=== PATIENT | male | born 1985 | race African-American/Black ===

== ENCOUNTER 2017-10-29 21:48 | Emergency (ER) | payer OTHER ==
[~2017-10-29] VITALS: Ht 198.1 cm; Wt 188.1 kg
[2017-10-29 21:58] VITALS: TEMP 37; O2SAT 96; Ht 198.1 cm; Wt 188.1 kg
[2017-10-29] MEDS ORDERED: DIPH25CA5 PO (22:20)
[2017-10-29] MEDS ORDERED: MIRT15TA2 PO (22:20)
[2017-10-29] MEDS ORDERED: MIRT15TA PO (22:20)
[2017-10-29] MEDS ORDERED: PALI156I INJ (22:20)
[2017-10-29] MEDS ORDERED: ACETAMINOPHEN 325 MG TAB PO STA (22:20)
[2017-10-29] MEDS ORDERED: ABL/5 PO (22:20)
[2017-10-29] MEDS ORDERED: KETOROLAC TROMETHAMINE 30 MG/ML VIAL IV STA (22:20)
[2017-10-29] MEDS ORDERED: TRAZ1TAB52 PO (22:20)
--- NOTE | 2017-10-29 22:32 | EMERGENCY ROOM VISIT NOTE ---
History Report prepared by Michael: Tiara Chatterjee Under the Supervision of: Dr. Sacha Barton M.D. First contact with patient: 22:03 Chief Complaint: CARDIAC ASSESSMENT Stated Complaint: DIZZY/CHEST PAIN Nursing Triage Summary: pt arrives via ALS from [facility] for chest pain for several days EMS reports patient was out on the yard, he had a syncopal episode @ noon he was nauseous and vomited, he was reporting left chest pain that did not radiate, it did not cause him to be short of breath in the ambulance he was given 2 Nitro and 324 Aspirin for pain of 10 He arrives to the room reporting chest pain 08/16 History of Present Illness The patient is a 32 year old black male with a past medical history of heart murmur, depression, and bipolar disorder who presents to the ED with a cc of an episode of syncope beginning 10 hours ago. He reports he was walking back to his cell when he felt lightheaded and passed out. The patient notes he has been experiencing intermittent left-sided stabbing chest pain for a few days, that were improved by Nitroglycerin that he received 1 hour and 15 minutes ago. He also received a full dose of aspirin. He denies any cough, infectious symptoms, or leg swelling. The patient denies recent heavy lifting or strenuous activity. He denies a history of seizures, syncopal episodes, or blood clots. Source of History: patient Onset: 10 hours ago Position: head Quality: other (syncope) Timing: other (episode) Associated Symptoms: + chest pain (intermittent, L-sided, stabbing, relieved by Nitroglycerin), No cough Note: Denies: infectious symptoms Review of Systems See HPI for pertinent positives and negatives. A total of ten systems were reviewed and were otherwise negative. Past Medical & Surgical Medical Problems: (1) Bipolar disorder (2) Depression (3) Heart murmur Family History No pertinent family history stated. Social History Smoking Status: Current Every Day Smoker Housing Status: other Occupation Status: other (prisoner) Current/Historical Medications Scheduled Aripiprazole (Abilify), 5 MG PO DAILY Diphenhydramine Hcl (Benadryl), 75 MG PO HS Mirtazapine (Remeron), 15 MG PO HS Mirtazapine Soltab (Remeron Soltab), 15 MG PO HS Paliperidone Palmitate (Invega Sustenna), 156 MG INJ [id number] Trazodone Hcl (Desyrel), 3 TABS PO HS Physical Exam Vital Signs Date Time Temp Pulse Resp B/P (MAP) Pulse Ox O2 Delivery O2 Flow Rate FiO2 10/30/17 00:16 77 95 10/29/17 23:39 79 16 119/68 97 Room Air 10/29/17 22:00 91 10/29/17 21:58 37.0 88 18 136/72 95 Room Air 10/29/17 21:58 96 Room Air Physical Exam GENERAL: Awake, alert, well-appearing, NAD, obese HENT: Normocephalic, atraumatic. EYES: Normal conjunctiva. Sclera non-icteric. PERRL. No anisocoria. NECK: Supple. No nuchal rigidity. FROM. RESPIRATORY: CTAB, no rhonchi, wheezing, crackles CARDIAC: RRR, no MRG ABDOMEN: Soft, NTND, BS+ MSK: No chest wall TTP, no reproducible chest wall pain, no LE edema, no calf pain, negative Oracio's NEURO: GCS 15, CN 2-12 intact, moves all 4s on command SKIN: No rash or jaundice noted. Medical Decision & Procedures ER Provider Diagnostic Interpretation: Radiology results as stated below per my review and radiologist interpretation: CHEST ONE VIEW PORTABLE CLINICAL HISTORY: Atypical chest pain COMPARISON STUDY: No previous studies for comparison. FINDINGS: The heart is borderline enlarged. There is no failure. There is no focal pulmonary consolidation. There are no pleural effusions. There is no pneumothorax. IMPRESSION: No active disease in the chest. Electronically signed by: Nnamdi Chaparro M.D. 10/29/2017 10:36 PM Dictated Date/Time: 10/29/2017 10:36 PM Laboratory Results 10/29/17 22:40 Red Blood Count 4.35, Mean Corpuscular Volume 93.3, Mean Corpuscular Hemoglobin 31.7, Mean Corpuscular Hemoglobin Concent 34.0, Mean Platelet Volume 9.4, Neutrophils (%) (Auto) 58.4, Lymphocytes (%) (Auto) 28.8, Monocytes (%) (Auto) 7.6, Eosinophils (%) (Auto) 4.8, Basophils (%) (Auto) 0.1, Neutrophils # (Auto) 4.00, Lymphocytes # (Auto) 1.97, Monocytes # (Auto) 0.52, Eosinophils # (Auto) 0.33, Basophils # (Auto) 0.01 10/29/17 22:40 Test 10/29/17 22:40 White Blood Count 6.85 K/uL (4.8-10.8) Red Blood Count 4.35 M/uL (4.7-6.1) Hemoglobin 13.8 g/dL (14.0-18.0) Hematocrit 40.6 % (42-52) Mean Corpuscular Volume 93.3 fL (80-100) Mean Corpuscular Hemoglobin 31.7 pg (25-34) Mean Corpuscular Hemoglobin Concent 34.0 g/dl (32-36) Platelet Count 231 K/uL (130-400) Mean Platelet Volume 9.4 fL (7.4-10.4) Neutrophils (%) (Auto) 58.4 % Lymphocytes (%) (Auto) 28.8 % Monocytes (%) (Auto) 7.6 % Eosinophils (%) (Auto) 4.8 % Basophils (%) (Auto) 0.1 % Neutrophils # (Auto) 4.00 K/uL (1.4-6.5) Lymphocytes # (Auto) 1.97 K/uL (1.2-3.4) Monocytes # (Auto) 0.52 K/uL (0.11-0.59) Eosinophils # (Auto) 0.33 K/uL (0-0.5) Basophils # (Auto) 0.01 K/uL (0-0.2) RDW Standard Deviation 50.5 fL (36.4-46.3) RDW Coefficient of Variation 14.7 % (11.5-14.5) Immature Granulocyte % (Auto) 0.3 % Immature Granulocyte # (Auto) 0.02 K/uL (0.00-0.02) Prothrombin Time 11.1 SECONDS (9.0-12.0) Prothromb Time International Ratio 1.1 (0.9-1.1) Activated Partial Thromboplast Time 28.0 SECONDS (21.0-31.0) Partial Thromboplastin Ratio 1.1 Anion Gap 6.0 mmol/L (3-11) Est Creatinine Clear Calc Drug Dose 156.1 ml/min Estimated GFR () 87.7 Estimated GFR (Non- 75.7 BUN/Creatinine Ratio 4.6 (10-20) Calcium Level 8.5 mg/dl (8.5-10.1) Total Bilirubin 0.2 mg/dl (0.2-1) Direct Bilirubin < 0.1 mg/dl (0-0.2) Aspartate Amino Transf (AST/SGOT) 32 U/L (15-37) Alanine Aminotransferase (ALT/SGPT) 48 U/L (12-78) Alkaline Phosphatase 52 U/L (45-117) Troponin I < 0.015 ng/ml (0-0.045) Pro-B-Type Natriuretic Peptide 71 pg/ml (0-450) Total Protein 7.7 gm/dl (6.4-8.2) Albumin 3.5 gm/dl (3.4-5.0) Lipase 139 U/L (73-393) Laboratory results reviewed by me Medications Administered Medications (Trade) Dose Ordered Sig/Ty Route Start Time Stop Time Status Last Admin Dose Admin Ketorolac Tromethamine (Toradol Inj) 30 mg NOW STAT IV 10/29/17 22:20 10/29/17 22:21 DC 10/29/17 22:20 30 MG Acetaminophen (Tylenol Tab) 650 mg NOW STAT PO 10/29/17 22:20 10/29/17 22:21 DC 10/29/17 22:20 650 MG ECG Per My Interpretation Indication: chest pain Rate (beats per minute): 90 Rhythm: normal sinus Findings: left axis deviation, other (normal intervals) ED Course 9: The patient was evaluated in room B6. A complete history and physical exam was performed. 2335: I reevaluated and updated the patient. Medical Decision Nursing notes reviewed. Ancillary studies and prior records reviewed. The patient is a 32 year old black male with a past medical history of heart murmur, depression, and bipolar disorder who presents to the ED with a cc of an episode of syncope beginning 10 hours ago. Differential diagnosis: Etiologies such as cardiac ischemia, aortic dissection, pulmonary embolism, pneumonia, pneumothorax, musculoskeletal, infections, pericarditis, myocarditis , esophageal rupture, gastrointestinal, as well as others were entertained. Patient was seen and evaluated the bedside. The patient reportedly had an episode of syncope after changing positions. No tongue biting or evidence of any incontinence. The patient has a normal neurological exam. The patient is currently incarcerated at [facility]. Patient was complaining of some left- sided chest pain that was sharp in nature. Nonradiating. No exertional symptoms diaphoresis or nausea or the patient did receive both aspirin nitro in route. The patient states that he did ease up his symptoms. The patient did have blood work completed along with EKG troponin chest x-ray. Patient's chest x-ray is unremarkable. Patient's EKG does not show any acute ischemic changes. The machine does read prolonged QT however when measuring this out it does appear to be less than 2 full boxes. Given that the patient's syncope was positional I believe this is the more likely cause. The patient did not complain of any palpitations chest pains or shortness of breath to make me more concerned for possible arrhythmia. Patient's troponin is not elevated. HEART score of 3. Low risk MACE and less likely ACS. PERC negative. Less likely PE. No evidence of CHF. no SOB. Patient not hypotensive. Patient was given strict follow-up, discharge, and return precautions. All questions were answered. Patient was deemed suitable for outpatient follow-up at this time. Patient agreed with the plan of care and was safely discharged back to [facility]. Medication Reconcilliation Current Medication List: was personally reviewed by me Blood Pressure Screening Patient's blood pressure: Elevated blood pressure Blood pressure disposition: Referred to PCP Impression Primary Impression: Syncope Additional Impressions: Chest pain Encounter for smoking cessation counseling Scribe Attestation The scribe's documentation has been prepared under my direction and personally reviewed by me in its entirety. I confirm that the note above accurately reflects all work, treatment, procedures, and medical decision making performed by me. Departure Information Dispostion Other (d/c'ed to [facility]) Referrals No Doctor, Assigned (PCP) Patient Instructions Chest Pain - [facility], [facility] Additional Instructions Please return to the emergency department if you have worsening or recurrent symptoms not amenable to at-home treatment. Please call for a follow-up appointment with her primary care physician. Please take your medications as prescribed. If you have other concerns and/or complaints please feel free to also call your primary care physician's office or return the ED for further evaluation, management, and treatment. You may take 600 mg Ibuprofen every 6 hours as needed for pain/fever with food unless told by your physician not to take NSAIDs. You may take tylenol 650 mg every 6 hours as needed for pain/fever unless told by your physician to not take it or have liver problems. You may take motrin and tylenol separately or at the same time. Take your medications as prescribed. You have been examined and treated today on an emergency basis only. This is not a substitute for, or an effort to provide, complete comprehensive medical care. It is impossible to recognize and treat all injuries or illnesses in a single emergency department visit. It is therefore important that you follow up closely with [facility], your PCP, and/or your specialist(s). Call as soon as possible for an appointment. Thank you for your time and consideration. I look forward to speaking with you again soon. Please don't hesitate to call us if you have any questions. Problem Qualifiers Primary Impression: Syncope Syncope type: unspecified Qualified Codes: R55 - Syncope and collapse Additional Impressions: Chest pain Chest pain type: unspecified Qualified Codes: R07.9 - Chest pain, unspecified
--- NOTE | 2017-10-29 22:38 | DIAGNOSTIC IMAGING REPORT ---
CHEST ONE VIEW PORTABLE CLINICAL HISTORY: Atypical chest pain COMPARISON STUDY: No previous studies for comparison. FINDINGS: The heart is borderline enlarged. There is no failure. There is no focal pulmonary consolidation. There are no pleural effusions. There is no pneumothorax.[ IMPRESSION: No active disease in the chest. Electronically signed by: Nnamdi Chaparro M.D. 10/29/2017 10:36 PM Dictated Date/Time: 10/29/2017 10:36 PM
[2017-10-29 23:03] LABS: BASO % 0.1 %; BASO ABS # 0.01 K/uL (0-0.2); EOS % 4.8 %; EOS ABS # 0.33 K/uL (0-0.5); HEMATOCRIT 40.6 % (42-52); HEMOGLOBIN 13.8 g/dL (14.0-18.0); IG# 0.02 K/uL (0.00-0.02); LYMPH % 28.8 %; LYMPH ABS # 1.97 K/uL (1.2-3.4); MEAN CELL VOLUME 93.3 fL (80-100); MEAN CORPUSCULAR HEMOGLOBIN 31.7 pg (25-34); MEAN PLATELET VOLUME 9.4 fL (7.4-10.4); MONO % 7.6 %; MONO ABS # 0.52 K/uL (0.11-0.59); NEUT % 58.4 %; PLATELET COUNT 231 K/uL (130-400); RED CELL DISTRIBUTION WIDTH CV 14.7 % (11.5-14.5); RED CELL DISTRIBUTION WIDTH SD 50.5 fL (36.4-46.3); WHITE BLOOD COUNT 6.85 K/uL (4.8-10.8)
[2017-10-29 23:17] LABS: INR 1.1 (0.9-1.1)
[2017-10-29 23:33] LABS: ALBUMIN 3.5 gm/dl (3.4-5.0); ALKALINE PHOSPHATASE 52 U/L (45-117); ALT/SGPT 48 U/L (12-78); AST/SGOT 32 U/L (15-37); BLOOD UREA NITROGEN 6 mg/dl (7-18); CALCIUM 8.5 mg/dl (8.5-10.1); CARBON DIOXIDE 29 mmol/L (21-32); CREATININE 1.25 mg/dl (0.60-1.40); GLUCOSE 96 mg/dl (70-99); LIPASE 139 U/L (73-393); SODIUM 140 mmol/L (136-145); TOTAL PROTEIN 7.7 gm/dl (6.4-8.2)
[2017-10-29 23:39] VITALS: BP 119/68
[2017-10-30 00:16] VITALS: PULSE 77; O2SAT 95
== END 2017-10-30 00:17 ==
LOC: C.EDB 21:50
DX: R55 Syncope and collapse (principal); R07.9 Chest pain, unspecified; F31.9 Bipolar disorder, unspecified; F32.9 Major depressive disorder, single episode, unspecified; R01.1 Cardiac murmur, unspecified; F17.200 Nicotine dependence, unspecified, uncomplicated

== ENCOUNTER 2020-01-12 10:50 | Inpatient (IN) ==
[2020-01-12] MEDS ORDERED: SODIUM CHLORIDE 0.9% 1000ML 1,000 ML IV SCH (11:00)
--- NOTE | 2020-01-12 11:05 | Emergency Department Note ---
Impression & Plan Embolism, pulmonary with infarction, Rhabdomyolysis, Low back pain ED Provider Note NAME: KARLIE [id number] JOEL AGE: 34 SEX: M : 1985 ARRIVES VIA: Ambulance INFORMANT: Patient, ED PROVIDER(S): Rigoberto Méndez DO CHIEF COMPLAINT: Chest pain HPI: The patient is a 34-year-old male who presented to the emergency department for an evaluation of chest pain. The patient has been noticing chest pain over the course of the last few weeks. He also has noticed some left-sided sciatica. He describes left-sided back pain that goes down the left leg. He is noticed swelling of both legs as well as generalized weakness. He has been noticing chest pain which is worsened with exertion. He is also noticed very significant shortness of breath and dyspnea on exertion. The symptoms appear to be worsening over the course of the last few weeks. He was seen in our facility yesterday and had a complete work-up which included CT of the chest. Initially the CAT scan was read as negative and the patient was able to be discharged to home. He was also called to come back to the emergency department today because the CT of the chest was over read and apparently the patient may have a pulmonary embolism. Radiology recommends repeat CT the chest as well as Dopplers of lower extremities to further evaluate the patient's symptoms. The patient states his pain is moderate to severe at this time. He states it is worsened with deep breathing as well as exertion. He is never had a history of pulmonary venous thromboembolic disease in the past. The patient states otherwise he has been compliant with his outpatient medication regimen. ROS: See above HPI for pertinent positives & negatives. A total of 10 systems reviewed and were otherwise negative. PAST MEDICAL HISTORY: See Below PAST SURGICAL HISTORY: See Below FAMILY HISTORY: See Below SOCIAL HISTORY: See Below HOME MEDICATIONS: See Below ALLERGIES: See Below VITALS: See Below PHYSICAL EXAMINATION: GENERAL: Patient is awake alert in no acute distress patient is resting comfortably and showing no signs of anxiety EYES: The conjunctivae are clear. The pupils are round and reactive. EARS, NOSE, MOUTH AND THROAT: The nose is without any evidence of any deformity. Mucous membranes are moist. Tongue is midline. NECK: The neck is nontender and supple. RESPIRATORY: Normal respiratory effort is noted there is no evidence of wheezing rhonchi or rales CARDIOVASCULAR: Regular rate and rhythm was noted to auscultation. Systolic murmur was suggested. GASTROINTESTINAL: The abdomen is soft. Abdomen is nontender. MUSCULOSKELETAL/EXTREMITIES: There is no evidence of gross deformity full range of motion is noted in the hips and shoulders. SKIN: There is no obvious evidence of any rash. Trace pedal edema was noted bilaterally peer NEUROLOGIC: Patient is awake alert and oriented x3 strength is symmetric patellar reflexes are 2+ bilaterally MEDICAL DECISION MAKING: The patient is a 34-year-old male who presented to the emergency department for an evaluation of chest pain. The patient has been experiencing chest pain shortness of breath as well as low back pain with left-sided sciatica over the course the last few weeks. He was seen in our facility yesterday and had laboratory and radiographic studies obtained. At that time he was found to have a possible left-sided pulmonary embolism. This was initially not picked up on the read of the CAT scan. The over read of the CAT scan looks suspicious so the patient was asked to return today. The patient continues to have symptoms but he is not showing signs of hypotension. His EKG looks the same as previous. He does have an elevated CPK which was elevated yesterday as well. This was treated with IV fluids yesterday but continues to elevate today. The patient's Dopplers of his legs did not appear to be consistent with venous thromboembolic disease of the lower extremities. I was unsure if the patient will require anticoagulation at this time. I discussed his findings with the on-call [facility] hospitalist. They will evaluate the patient in the emergency department and determine further work-up as well as treatment. The patient was treated with IV fluids in the emergency department for the elevated CPK. He was reevaluated multiple times. I discussed the patient's laboratory and radiographic studies with him. Triage Nursing notes reviewed. Prior medical records reviewed Vital Signs: reviewed and remarkable for no significant abnormalities Differential diagnosis: Cardiac ischemia, aortic dissection, pulmonary embolism, pneumothorax, pneumonia, pericarditis, myocarditis, esophageal rupture, GERD, cholecystitis, pancreatitis, musculoskeletal, as well as other pathologies. ER treatment provided: See below Diagnostics interpreted by me: ECG: EKG was obtained in the emergency department. My interpretation is normal sinus rhythm at 88 bpm. There was no ectopy. There was no acute ST segment abnormalities noted. This was compared to a tracing from January 102019. No significant changes were noted. Cardiac Monitoring: An order was placed for continuous cardiac monitoring. The monitor shows a rate of 85 bpm with sinus rhythm. Laboratory studies: As stated above and show below. Imaging studies: See below Consultation(s): 1400: I discussed this case with Ananth who is on-call for the [facility] hospitalist. 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 Beliefs That Will Affect Care: None Current Living Situation: Other Current Living Situation Comment: [facility] Other Information That Helps Us Care for You: No Feels Safe at Home: Yes Safety Concerns: Feels Safe At This Time Allergies Allergies Allergy/AdvReac Type Severity Reaction Status Date / Time No Known Allergies Allergy Unverified 01/12/20 13:09 Home Meds Home Medications Medication Instructions Recorded Confirmed ammonium lactate 1 applic TOPICAL DAILY 01/12/20 01/12/20 aripiprazole [Abilify] 2 mg PO HS 01/12/20 01/12/20 diphenhydramine HCl [Benadryl] 50 mg PO HS 01/12/20 01/12/20 lanolin nuszqbx-rq-w.pet-ceres 1 applic TOPICAL BID 01/12/20 01/12/20 [Minerin Creme] paliperidone palmitate [Invega 156 mg IM UD 01/12/20 01/12/20 Sustenna] pantoprazole 20 mg PO DAILY 01/12/20 01/12/20 trazodone 200 mg PO HS 01/12/20 01/12/20 Results & Data (ED) Vital Signs Vital Signs - 24 hr 01/12/20 10:57 01/12/20 11:00 01/12/20 11:08 Temperature 36.9 C Temperature Source Oral Pulse Rate 93 H 89 Pulse Rate [Apical] Pulse Rate from SpO2 Sensor 91 H 89 Pulse Rhythm Regular Respiratory Rate 20 19 Respiratory Effort / Characteristics Spontaneous Respiratory Depth Normal Respiratory Pattern Regular Blood Pressure 132/69 131/84 Blood Pressure [Right Arm] Blood Pressure Mean 92 98 Blood Pressure Mean [Right Arm] Pulse Oximetry 98 98 98 Oxygen Delivery Method Nasal Cannula Nasal Cannula Oxygen Flow Rate 2 2 Sepsis Recent Fever Within 48 Hours No Sepsis New/Unexplained Change in Mental Status No Sepsis Action Taken by Nursing No Action Required 01/12/20 11:31 01/12/20 12:42 01/12/20 13:00 Temperature Temperature Source Pulse Rate 82 Pulse Rate [Apical] Pulse Rate from SpO2 Sensor 83 80 81 Pulse Rhythm Respiratory Rate 20 Respiratory Effort / Characteristics Respiratory Depth Respiratory Pattern Blood Pressure 103/47 L 143/79 H 136/56 L Blood Pressure [Right Arm] Blood Pressure Mean 74 93 93 Blood Pressure Mean [Right Arm] Pulse Oximetry 99 99 99 Oxygen Delivery Method Oxygen Flow Rate Sepsis Recent Fever Within 48 Hours Sepsis New/Unexplained Change in Mental Status Sepsis Action Taken by Nursing 01/12/20 13:06 01/12/20 13:30 01/12/20 14:00 Temperature Temperature Source Pulse Rate 78 96 H Pulse Rate [Apical] 79 Pulse Rate from SpO2 Sensor 79 86 Pulse Rhythm Respiratory Rate 18 16 14 Respiratory Effort / Characteristics Respiratory Depth Respiratory Pattern Blood Pressure 121/66 131/66 Blood Pressure [Right Arm] 136/56 L Blood Pressure Mean 90 93 Blood Pressure Mean [Right Arm] 82 Pulse Oximetry 99 98 96 Oxygen Delivery Method Oxygen Flow Rate Sepsis Recent Fever Within 48 Hours Sepsis New/Unexplained Change in Mental Status Sepsis Action Taken by Nursing 01/12/20 14:31 01/12/20 15:00 01/12/20 16:10 Temperature Temperature Source Pulse Rate 82 83 86 Pulse Rate [Apical] Pulse Rate from SpO2 Sensor 86 Pulse Rhythm Respiratory Rate 17 16 19 Respiratory Effort / Characteristics Respiratory Depth Respiratory Pattern Blood Pressure 117/54 L 104/64 136/80 Blood Pressure [Right Arm] Blood Pressure Mean 100 75 91 Blood Pressure Mean [Right Arm] Pulse Oximetry 98 99 Oxygen Delivery Method Oxygen Flow Rate Sepsis Recent Fever Within 48 Hours Sepsis New/Unexplained Change in Mental Status Sepsis Action Taken by Half-Way Medications Current Medication List: was personally reviewed by me Laboratory Data Attestation: I reviewed the patient's lab results. Result diagrams: 01/12/20 11:14 01/12/20 11:14 Lab Results 01/12/20 01/12/20 01/12/20 Range/Units 11:14 11:14 11:14 WBC 6.44 (4.8-10.8) K/uL RBC 4.24 L (4.7-6.1) M/uL Hgb 13.0 L (14.0-18.0) g/dL Hct 39.0 L (42-52) % MCV 92.0 (80-100) fL MCH 30.7 (25-34) pg MCHC 33.3 (32-36) g/dL RDW Std Deviation 50.8 H (36.4-46.3) fL RDW Coeff of Josefina 14.9 H (11.5-14.5) % Plt Count 257 (130-400) K/uL MPV 9.2 (7.4-10.4) fL Immature Gran % (Auto) 0.2 % Neut % (Auto) 57.5 % Lymph % (Auto) 32.3 % Pickett % (Auto) 7.5 % Eos % (Auto) 2.3 % Baso % (Auto) 0.2 % Neut # (Auto) 3.71 (1.4-6.5) K/uL Lymph # (Auto) 2.08 (1.2-3.4) K/uL Pickett # (Auto) 0.48 (0.11-0.59) K/uL Eos # (Auto) 0.15 (0-0.5) K/uL Baso # (Auto) 0.01 (0-0.2) K/uL Immature Gran # (Auto) 0.01 (0.00-0.02) K/uL PT 11.6 (9.0-12.0) Seconds INR 1.1 (0.9-1.1) APTT 28.8 (21.0-31.0) Seconds PTT Ratio 1.0 Sodium 142 (136-145) mmol/L Potassium 4.2 (3.5-5.1) mmol/L Chloride 110 H (98-107) mmol/L Carbon Dioxide 29 (21-32) mmol/L Anion Gap 3.0 (3-11) BUN 7 (7-18) mg/dl Creatinine 1.11 (0.6-1.4) mg/dl Est Cr Clr Drug Dosing 179.8 ml/min Est GFR ( Amer) 99.9 Est GFR (Non-Af Amer) 86.2 BUN/Creatinine Ratio 6.5 L (10-20) Glucose 94 (70-99) mg/dl Calcium 8.5 (8.5-10.1) mg/dl Total Bilirubin 0.3 (0.2-1) mg/dl AST 31 (15-37) U/L ALT 40 (12-78) U/L Alkaline Phosphatase 41 L (45-117) U/L Total Creatine Kinase 3227 H (39-308) U/L CK-MB (CK-2) 8.5 H (0.5-3.6) ng/ml CK/CKMB % Calc 0.3 (0-3.0) Troponin I < 0.015 (0-0.045) ng/ml Total Protein 7.4 (6.4-8.2) gm/dl Albumin 3.5 (3.4-5.0) gm/dl Globulin 3.9 (2.5-4.0) gm/dl Albumin/Globulin Ratio 0.9 (0.9-2) Lipase 124 (73-393) U/L Administered Medications Discontinued Medications Heparin Sodium (Porcine) (Heparin Sod (Porcine) 1000 Unit/Ml 10 Ml Vial) Confirm Administered Dose 10,000 units .ROUTE .STK-MED ONE Stop: 01/12/20 16:07 Last Admin: 01/12/20 16:12 Dose: 10,000 units Documented by: [id number] Cosigned by: [id number] Heparin Sodium/Dextrose (Heparin 93546 Unit/500 Ml D5w) Confirm Administered Dose 25,000 units IV .STK-MED ONE Stop: 01/12/20 16:06 Last Admin: 01/12/20 16:10 Dose: 2,450 units Documented by: [id number] Cosigned by: [id number] Sodium Chloride (Nss 1000ml) 1,000 mls @ 999 mls/hr IV .Q1H1M ALESSANDRA Stop: 01/12/20 12:00 Last Infusion: 01/12/20 12:29 Dose: 0 mls/hr Documented by: [id number] Admin: 01/12/20 11:24 Dose: 999 mls/hr Documented by: [id number] Sodium Chloride (Nss 1000ml) 1,000 mls @ 999 mls/hr IV .Q1H1M ONE Stop: 01/12/20 14:42 Last Infusion: 01/12/20 16:11 Dose: 49 mls/hr Documented by: [id number] Admin: 01/12/20 14:19 Dose: 999 mls/hr Documented by: [id number] Ioversol (Optiray 320 125ml) 119 ml IV ONCE ONE Stop: 01/12/20 12:37 Last Admin: 01/12/20 12:36 Dose: 119 ml Documented by: [id number] Imaging Data Radiologist's Impression: Patient: KARLIE [id number] Date: 01/12/20 MR#: [id number]: [place] Acct ID:[id number]: [address] Date: 1985[facility] Zip: [place] [address] Age: 34Location: ED Sex: MRoom/Bed: Att Phy:Diagnosis: PE Urmila Phy: [facility] CadenSer Date: 01/12/20 Fam Phy:Interpreting Phy: Matthew Amaral MD Admit Phy: Ordering Phy: Rigoberto Méndez DO cc: ~ LUMBAR SPINE CT CT DOSE: HISTORY: Back pain. TECHNIQUE: Multiaxial CT images of the lumbar spine were performed and refor matted in the sagittal and coronal plane without the use of contrast. A dose lowering technique was utilized adhering to the principles of ALARA. COMPARISON: None. FINDINGS: No fractures or subluxation within the lumbar spine. The visualized sacrum appears intact. Mild facet degenerative changes at L5-S1. Paravertebral soft tissues are unremarkable. No significant central canal narrowing by CT technique. Disc spaces are preserved. IMPRESSION: No fractures within the lumbar spine. ACT 112: Negative or not required by law. Electronically signed by: Matthew Amaral M.D. 01/12/2020 12:42 PM Dictated: 01/12/20 1239 Transcribed: 01/12/20 1239 Patient: KARLIE [id number] Date: 01/12/20 MR#: [id number]: [place] Acct ID:[id number]: [address] Date: 1985[facility] Zip: [place] [id number] Age: 34Location: ED Sex: MRoom/Bed: Att Phy:Diagnosis: PE Urmila Phy: [facility]o Date: 01/12/20 Fam Phy:Interpreting Phy: Oleg Del Rio MD Admit Phy: Ordering Phy: Rigoberto Méndez DO cc: ~ CT ANGIOGRAM OF THE CHEST CLINICAL HISTORY: Atypical chest pain. COMPARISON STUDY: Chest CT dated 01/11/2020. TECHNIQUE: Following the IV administration of 119 cc of Optiray 320, CT angiogram of the chest was performed from the upper abdomen to the thoracic inlet utilizing the pulmonary embolus protocol. Images are reviewed in the axial, sagittal, and coronal planes. 3-D MIPS images are created and assessed. IV contrast was administered without complication. A dose lowering technique was utilized adhering to the principles of ALARA. The examination is degraded by motion artifact. CT DOSE: 2395.97 mGy.cm FINDINGS: Thyroid: Imaged portions of the thyroid gland are normal in size and attenuation. Thoracic aorta: The thoracic aorta is normal in caliber and demonstrates standard 3-vessel arch anatomy. No dissection is seen. Pulmonary vasculature: The pulmonary trunk is normal in caliber. There is segmental and subsegmental pulmonary embolus within a branch of the left lower lobe pulmonary artery seen on image #122. No additional pulmonary emboli are identified. Heart: The heart is normal in size and without pericardial effusion. Lungs and pleural spaces: There is groundglass consolidation seen at the left lung base which is new from yesterday. The lungs are otherwise clear. No pleural effusion is seen. The trachea and central airways are clear. Mediastinum: There is no mediastinal lymphadenopathy. Corrina: Clear. Axillae: There is no axillary lymphadenopathy. Upper abdomen: The liver appears steatotic. Partially visualized upper abdominal viscera is otherwise within normal limits. Skeletal structures: No lytic or blastic bony lesions are seen. IMPRESSION: 1. There are segmental and subsegmental pulmonary emboli within a branch of the left lower lobe pulmonary artery. 2. There is groundglass consolidation identified in the left lower lobe which is new from yesterday. Given the presence of left lower lobe pulmonary embolus this likely represents a developing pulmonary infarct. Correlate clinically for andriy dence of a superimposed infectious/inflammatory pneumonitis. 3. Hepatic steatosis. 4. Additional findings as above. ACT 112: Negative or not required by law. Electronically signed by: Oleg Del Rio M.D. 01/12/2020 1:06 PM Dictated: 01/12/20 1256 Transcribed: 01/12/20 1256 Patient: KARLIE MALDONADO [id number] Date: 01/12/20 MR#: [id number]: EMANI HORTON Acct ID:[id number]: SAM Pfeiffer Date: 1985[facility] Zip: [place] [address] Age: 34Location: ED Sex: MRoom/Bed: Att Phy:Diagnosis: PE [facility]rmila [facility]: [facility] Fam Phy:Interpreting Phy: Jared Ragsdale MD Admit Phy: Ordering Phy: Rigoberto Méndez, cc: ~ BILATERAL LOWER EXTREMITY VENOUS DOPPLER CLINICAL HISTORY: Possible PE, recommended by radiology COMPARISON STUDY: No previous studies for comparison. TECHNIQUE: Sonography of the deep venous system of the bilateral lower extremities was performed. Compression and augmentation were evaluated. FINDINGS: The bilateral common femoral, superficial femoral and popliteal veins were compressible. Augmentation was normal. Flow was shown within the deep calf vessels. IMPRESSION: No evidence of deep venous thrombus within the bilateral lower extremities. ACT 112: Negative or not required by law. Electronically signed by: Jared Ragsdale M.D. 01/12/2020 12:17 PM Dictated: 01/12/20 1217 Transcribed: 01/12/207 Blood Pressure Blood Pressure Findings: Normal blood pressure Discharge Plan Visit Data Chief Complaint: Cardiac Assessment ED Provider: Rigoberto Méndez Discharge Problem: Embolism, pulmonary with infarction, Rhabdomyolysis, Low back pain Patient Disposition: Admitted As Inpatient Condition: Good Discharge Instructions Interventions: ED Discharge Assessment Last Done: 01/12/20 16:21 Forms Stand Alone Forms: [facility] Prescriptions Prescriptions: No Action ammonium lactate 12 % Lotion 1 applic TOPICAL DAILY RF: 0 pantoprazole 20 mg Tablet,Delayed Release (Dr/Ec) 20 mg PO DAILY RF: 0 trazodone 100 mg Tablet 200 mg PO HS RF: 0 diphenhydramine HCl [Benadryl] 25 mg Capsule 50 mg PO HS RF: 0 aripiprazole [Abilify] 2 mg Tablet 2 mg PO HS RF: 0 Minerin Creme Cream 1 applic TOPICAL BID RF: 0 Invega Sustenna 156 mg/mL Syringe 156 mg IM UD RF: 0 Referrals Referrals: Caden JOAQUIN [Primary Care Provider] -
[2020-01-12 11:24] LABS: Basophils # (auto) 0.01 K/uL (0-0.2); Basophils % (auto) 0.2 %; Eosinophils # (auto) 0.15 K/uL (0-0.5); Eosinophils % (auto) 2.3 %; Immature Granulocytes # (auto) 0.01 K/uL (0.00-0.02); Immature Granulocytes % (auto) 0.2 %; Lymphocytes # (auto) 2.08 K/uL (1.2-3.4); Lymphocytes % (auto) 32.3 %; Mean Corpuscular Hemoglobin 30.7 pg (25-34); Mean Corpuscular Hgb Conc 33.3 g/dL (32-36); Mean Platelet Volume 9.2 fL (7.4-10.4); Monocytes # (auto) 0.48 K/uL (0.11-0.59); Monocytes % (auto) 7.5 %; Neutrophils # (auto) 3.71 K/uL (1.4-6.5); Neutrophils % (auto) 57.5 %; Platelet Count 257 K/uL (130-400); RDW Coefficient of Variation 14.9 % (11.5-14.5); RDW Standard Deviation 50.8 fL (36.4-46.3); Red Blood Count 4.24 M/uL (4.7-6.1); White Blood Count 6.44 K/uL (4.8-10.8)
[2020-01-12 11:35] LABS: INR 1.1 (0.9-1.1); Partial Thromboplastin Time 28.8 Seconds (21.0-31.0); Prothrombin Time 11.6 Seconds (9.0-12.0)
[2020-01-12 11:42] LABS: Alanine Aminotransferase 40 U/L (12-78); Albumin Level 3.5 gm/dl (3.4-5.0); BUN Creatinine Ratio 6.5 (10-20); Blood Urea Nitrogen 7 mg/dl (7-18); Calcium 8.5 mg/dl (8.5-10.1); Carbon Dioxide 29 mmol/L (21-32); Chloride 110 mmol/L (98-107); Creatinine Clr Calc Pharmacy 179.8 ml/min; Est GFR (African American) 99.9; Est GFR (Non-African American) 86.2; Glucose 94 mg/dl (70-99); Potassium 4.2 mmol/L (3.5-5.1); Sodium 142 mmol/L (136-145)
[2020-01-12 11:56] LABS: Albumin Globulin Ratio 0.9 (0.9-2); Alkaline Phosphatase 41 U/L (45-117); Aspartate Aminotransferase 31 U/L (15-37); Bilirubin,Total 0.3 mg/dl (0.2-1); Creatine Kinase 3227 U/L (39-308); Creatine Kinase MB 8.5 ng/ml (0.5-3.6); Globulin 3.9 gm/dl (2.5-4.0); Lipase 124 U/L (73-393); Total Protein 7.4 gm/dl (6.4-8.2); Troponin I < 0.015 ng/ml (0-0.045)
--- NOTE | 2020-01-12 12:18 | Ultrasound Report ---
BILATERAL LOWER EXTREMITY VENOUS DOPPLER CLINICAL HISTORY: Possible PE, recommended by radiology COMPARISON STUDY: No previous studies for comparison. TECHNIQUE: Sonography of the deep venous system of the bilateral lower extremities was performed. Co mpression and augmentation were evaluated. FINDINGS: The bilateral common femoral, superficial femoral and popliteal veins were compressible. A ugmentation was normal. Flow was shown within the deep calf vessels. IMPRESSION: No evidence of deep venous thrombus within the bilateral lower extremities. ACT 112: Negative or not required by law. Electronically signed by: Jared Ragsdale M.D. 01/12/2020 12:17 PM
[2020-01-12] MEDS ORDERED: OPTIRAY 320 125ml IV ONE (12:36)
--- NOTE | 2020-01-12 12:44 | CT Scan Report ---
LUMBAR SPINE CT CT DOSE: HISTORY: Back pain. TECHNIQUE: Multiaxial CT images of the lumbar spine were performed and reformatted in the sagittal an d coronal plane without the use of contrast. A dose lowering technique was utilized adhering to the principles of ALARA. COMPARISON: None. FINDINGS: No fractures or subluxation within the lumbar spine. The visualized sacrum appears intact. Mild facet degenerative changes at L5-S1. Paravertebral soft tissues are unremarkable. No significant central canal narrowing by CT technique. Disc spaces are preserved. IMPRESSION: No fractures within the lumbar spine. ACT 112: Negative or not required by law. Electronically signed by: Matthew Amaral M.D. 01/12/2020 12:42 PM
--- NOTE | 2020-01-12 13:07 | CT Scan Report ---
CT ANGIOGRAM OF THE CHEST CLINICAL HISTORY: Atypical chest pain. COMPARISON STUDY: Chest CT dated 01/11/2020. TECHNIQUE: Following the IV administration of 119 cc of Optiray 320, CT angiogram of the chest was pe rformed from the upper abdomen to the thoracic inlet utilizing the pulmonary embolus protocol. Images are reviewed in the axial, sagittal, and coronal planes. 3-D MIPS images are created and assessed. I V contrast was administered without complication. A dose lowering technique was utilized adhering to the principles of ALARA. The examination is degraded by motion artifact. CT DOSE: 2395.97 mGy.cm FINDINGS: Thyroid: Imaged portions of the thyroid gland are normal in size and attenuation. Thoracic aorta: The thoracic aorta is normal in caliber and demonstrates standard 3-vessel arch anato my. No dissection is seen. Pulmonary vasculature: The pulmonary trunk is normal in caliber. There is segmental and subsegmental pulmonary embolus within a branch of the left lower lobe pulmonary artery seen on image #122. No pérez tional pulmonary emboli are identified. Heart: The heart is normal in size and without pericardial effusion. Lungs and pleural spaces: There is groundglass consolidation seen at the left lung base which is new from yesterday. The lungs are otherwise clear. No pleural effusion is seen. The trachea and central a irways are clear. Mediastinum: There is no mediastinal lymphadenopathy. Corrina: Clear. Axillae: There is no axillary lymphadenopathy. Upper abdomen: The liver appears steatotic. Partially visualized upper abdominal viscera is otherwise within normal limits. Skeletal structures: No lytic or blastic bony lesions are seen. IMPRESSION: 1. There are segmental and subsegmental pulmonary emboli within a branch of the left lower lobe pulmo nary artery. 2. There is groundglass consolidation identified in the left lower lobe which is new from yesterday. Given the presence of left lower lobe pulmonary embolus this likely represents a developing pulmonary infarct. Correlate clinically for evidence of a superimposed infectious/inflammatory pneumonitis. 3. Hepatic steatosis. 4. Additional findings as above. ACT 112: Negative or not required by law. Electronically signed by: Oleg Del Rio M.D. 01/12/2020 1:06 PM
[2020-01-12] MEDS ORDERED: SODIUM CHLORIDE 0.9% 1000ML 1,000 ML IV ONE (13:42)
--- NOTE | 2020-01-12 14:35 | History & Physical Report ---
Date of Service January 12, 2020 Assessment & Plan (1) Pulmonary embolism: CTA chest on 01/11 showed segmental and subsegmental pulmonary emboli within a branch of the left lower lobe pulmonary artery along with small pulmonary infarct. - Heparin gtt started - Hypercoagulable labs sent, though certainly his obesity is a risk factor. - Likely will need transition to warfarin given his obesity. - Given the small nature of the PE, vital sign stability, & negative troponin, I will defer echo. (2) Rhabdomyolysis: CK was noted to be 2750 on 01/10. He was given some fluids in the ED and sent back to [facility] for more fluids. Today his CK is up to 3230. No clear inciting cause. Per literature, pulmonary infarct can sometime cause it, but usually in the context of right-heart strain and positive troponins. - Check TSH - IV fluids - Monitor (3) Hematuria: Patient reports episode of darker urine yesterday. Unclear if this was hematuria or not. Could also have been a myoglobinuria from his mild CK elevation. - UA ordered - If positive, would need to consider urology consult given his need for anticoagulation (4) Bipolar disorder: Presently appears euthymic. - Continue home medications (5) Sciatica: Left-sided, down to the knee. CT lumbar spine without concerns. - Monitor History of Present Illness Primary Care Provider: [facility] 34yo M w/ hx of bipolar disorder and ALLISON who presents with segmental PE. The patient reported intermittent chest pain that radiated to the back for a few days. He was brought to the ED on 01/10 and worked up for a cardiac rule out and PE. The CTA at that time was very limited, but did not show any central PE. He was discharged back to [facility] and told to follow up with a tube mounter. His pain worsened, and he was sent back. This time, the CTA as repeated and a better study, and it showed segmental and subsegmental LLL PEs as well as a pulmonary infarct. On my interview, he reports the pain as waxing and waning and is not having any pain at present. He continues to have some shortness of breath, but feels better on 2L NC. No fevers, chills, cough. He does note he has some "flushing" that has gone on for several months. He reports some possible reddish urine yesterday, but no dysuria or polyuria. Allergies Allergy/AdvReac Type Severity Reaction Status Date / Time No Known Allergies Allergy Unverified 01/12/20 13:09 Home Medications Home Medications Medication Instructions Recorded Confirmed Type ammonium lactate 1 applic TOPICAL DAILY 01/12/20 01/12/20 History aripiprazole [Abilify] 2 mg PO HS 01/12/20 01/12/20 History diphenhydramine HCl [Benadryl] 50 mg PO HS 01/12/20 01/12/20 History lanolin ffzimhz-sy-d.pet-ceres 1 applic TOPICAL BID 01/12/20 01/12/20 History [Minerin Creme] paliperidone palmitate [Invega 156 mg IM UD 01/12/20 01/12/20 History Sustenna] pantoprazole 20 mg PO DAILY 01/12/20 01/12/20 History trazodone 200 mg PO HS 01/12/20 01/12/20 History Past Med/Surg History Medical History Bipolar disorder Chest pain Depression Heart murmur Hypertension Pulmonary embolism 01/12/2020 Rhabdomyolysis Social History Smoking Status: Unknown if ever smoked Second Hand Exposure: No; Do You Dip or Chew Tobacco: No; Tobacco Cessation Education Requested by Patient: No Hx Alcohol Use: No Hx Substance Use: No Preferred Language: Divehi Communication Ability: Effective 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 Beliefs That Will Affect Care: None Current Living Situation: Other Current Living Situation Comment: [facility] Other Information That Helps Us Care for You: No Feels Safe at Home: Yes Safety Concerns: Feels Safe At This Time Review of Systems Review of Systems: All systems reviewed & are unremarkable except as noted in HPI & below Physical Exam Constitutional: WD/WN, vitals as above + morbidly obese Eyes: EOM intact bilaterally; no conjunctival abnormality ENMT: external ear and nose normal, oropharynx normal Neck: trachea midline, no thyromegaly normal visual inspection Respiratory: normal respiratory effort, lungs clear to auscultation + labored breathing; no respiratory distress Auscultation: + diminished lung sounds Cardiovascular: RRR, no murmur, no edema Gastrointestinal (Abdomen): Inspection/Auscultation: abdomen normal to inspection; abdomen not distended Musculoskeletal: no cyanosis or clubbing, extremities motor strength 5/5 Skin: no rashes, warm and dry Neurologic: moves all extremities and awake Psychiatric: Orientation: alert, oriented to person and cooperative Results & Data Results & Data ([facility]) Vital Signs (Past 12 Hours) Vital Signs Temp Pulse Pulse Resp BP BP Pulse Ox 01/12/20 13:06 79 18 136/56 L 99 01/12/20 13:00 136/56 L 99 01/12/20 12:42 143/79 H 99 01/12/20 11:31 82 20 103/47 L 99 01/12/20 11:08 98 01/12/20 11:00 89 19 131/84 98 01/12/20 10:57 36.9 C 93 H 20 132/69 98 Code Status & VTE Plan VTE Prophylaxis Plan VTE Prophylaxis will be ordered: Yes PG Care Time/CCT Total # of Minutes Spent Total Time Spent with Patient: Total time spent is greater than 50% in coord ination of care (as documented) at patient's floor/unit and/or counseling patient: Coding Level of Care Code 19014 Initial Inpt Care Lvl 3 Diagnoses Pulmonary embolism I26.99 Rhabdomyolysis M62.82 Rhabdomyolysis type: non-traumatic Hematuria R31.9 Bipolar disorder F31.9 Sciatica M54.30 (1) Rhabdomyolysis Rhabdomyolysis type: non-traumatic Qualified Code(s): M62.82 - Rhabdomyolysis
[2020-01-12] MEDS ORDERED: HEPARIN 25000 UNIT/500 ML D5W IV ONE (16:05)
[2020-01-12] MEDS ORDERED: HEPARIN SOD (PORCINE) 1000 UNIT/ML 10 ML VIAL ONE (16:06)
--- NOTE | 2020-01-12 16:48 | Electrocardiogram Report ---
Test Reason : Blood Pressure : / mmHG Vent. Rate : 088 BPM Atrial Rate : 088 BPM P-R Int : 160 ms QRS Dur : 102 ms QT Int : 388 ms P-R-T Axes : 042 003 024 degrees QTc Int : 469 ms Normal sinus rhythm Abnormal ECG When compared with ECG of 11-JAN-2020 22:45, (unconfirmed) No significant change was found Confirmed by Dallas Gonzalez ([id number]) on 01/12/2020 4:47:57 PM Referred By: REFERRED SELF Confirmed By:Erasmo Gonzalez
[2020-01-12] MEDS ORDERED: ONDANSETRON INJ 2 MG/ML 2 ML VIAL IV PRN (17:17)
[2020-01-12] MEDS ORDERED: MoRPHine SULFATE 4 MG/ML 1 ML CARP\\VIAL IV PRN (17:17)
[2020-01-12] MEDS: SODIUM CHLORIDE 0.9% 1000ML 1,000 ML IV SCH (17:55)
[2020-01-12] MEDS: HEPARIN SODIUM/DEXTROSE 25,000 UNITS/500 ML BAG IV SCH (17:55)
[2020-01-12 20:04] LABS: Appearance Urine Clear (Clear); Bilirubin Urine Negative (Negative); Blood Urine Negative (Negative); Color Urine Yellow; Glucose Urine UA Negative (Negative); Ketones Urine Negative (Negative); Leukocyte Esterase Urine Negative (Negative); Nitrite Urine Negative (Negative); Protein Urine Negative (Negative); Specific Gravity Urine 1.038 (1.000-1.030); Urobilinogen Urine Negative (Negative)
[2020-01-12] MEDS: traZODone HCL 100 MG TAB PO SCH (21:36)
[2020-01-12] MEDS: ARIPIprazole 1 MG/ML ORAL SOLN 150 ML BTL PO SCH (21:36)
[2020-01-12] MEDS: diphenhydrAMINE Capsule 25 MG CAP PO SCH (21:36)
[2020-01-13 01:14] LABS: Partial Thromboplastin Ratio 1.8
[2020-01-13 01:21] LABS: Partial Thromboplastin Time 49.5 Seconds (21.0-31.0)
[2020-01-13] MEDS: HEPARIN SODIUM/DEXTROSE 25,000 UNITS/500 ML BAG IV SCH ×2 (03:32→15:27)
[2020-01-13] MEDS: SODIUM CHLORIDE 0.9% 1000ML 1,000 ML IV SCH ×3 (03:32→22:33)
[2020-01-13 07:41] LABS: Hematocrit (blood only) 37.8 % (42-52); Hemoglobin 12.5 g/dL (14.0-18.0); Mean Corpuscular Hemoglobin 30.5 pg (25-34); Mean Corpuscular Hgb Conc 33.1 g/dL (32-36); Mean Corpuscular Volume 92.2 fL (80-100); Mean Platelet Volume 9.4 fL (7.4-10.4); Platelet Count 247 K/uL (130-400); RDW Standard Deviation 50.8 fL (36.4-46.3); White Blood Count 5.87 K/uL (4.8-10.8)
[2020-01-13 08:02] LABS: INR 1.1 (0.9-1.1); Partial Thromboplastin Ratio 1.8; Prothrombin Time 11.9 Seconds (9.0-12.0)
[2020-01-13 08:03] LABS: Partial Thromboplastin Time 51.3 Seconds (21.0-31.0)
[2020-01-13 08:15] LABS: Albumin Level 3.2 gm/dl (3.4-5.0); BUN Creatinine Ratio 6.1 (10-20); Calcium 8.3 mg/dl (8.5-10.1); Creatinine Clr Calc Pharmacy 176.1 ml/min; Est GFR (African American) 98.8; Est GFR (Non-African American) 85.2
[2020-01-13 08:31] LABS: Albumin Globulin Ratio 0.8 (0.9-2); Bilirubin,Total 0.2 mg/dl (0.2-1); Magnesium 2.2 mg/dl (1.8-2.4); Thyroid Stimulating Hormone 4.8 uIu/ml (0.300-4.500); Total Protein 7.2 gm/dl (6.4-8.2)
[2020-01-13 08:43] LABS: T4 Free Thyroxine 0.9 ng/dl (0.8-1.6)
--- NOTE | 2020-01-13 13:07 | Hospitalist Progress Note ---
Date of Service January 13, 2020 Assessment & Plan (1) Embolism, pulmonary with infarction: 34 yo M inmate with hx bipolar disorder admitted for segmental and sub- segmental PE. 1. Pulmonary embolism with pulmonary infarct - CTA: segmental and subsegmental PEs in LLL with developing pulmonary infarct - heparin drip for anticoagulation - BL LE dopplers negative for DVT - hypercoagulable panel of protein C,s, antithrombin, antiphopholipid, factor v leiden pending - Given weight, unable to use DOAC for futre anticoagulation. Transition to warfarin started with 7 mg warfarin x 2 days. Warfarin nomogram to follow; d/c heparin when INR between 2-3 for 2 days. - morphine 4 mg IV Q3H PRN Rhabdo - CK 3500 on admission - NS for rehydration - encourage PO fluid intake - repeat ck tomorrow Bipolar disorder - continue aripiprazole 2mg HS, trazodone 200 mg HS DVT ppx; on heparin drip FEN/GI: regular diet Code status: full code Dispo: Med/Surg (2) Rhabdomyolysis: (3) Low back pain: (4) Bipolar disorder: Admission and Anticipated Discharge Date Admission Date: January 12, 2020 Supervising Physician Co-Signing Physician Notes I also saw the patient and confirmed rodriguez portions of the history and exam. He does not know of any family history of VTE. His chest pain is improved, although still present. SPO2 95 percent on RA. CV RRR, distant. Lungs clear. PE Rhabdomyolysis Hematuria Given his weight, there is no data with Lovenox, so will need heparin gtt until therapeutic on wafarin (with overlap). IVF Monitor CK, BMP, and CBC. Subjective otherwise healthy 34 yo M, complaints of chest pain for the past few days that got steadily worse. Says he also suffers from sciatic nerve pain but mostly ignores it. decides to bring up issue of pain when it spread to his chest. Denies recent hx of being sedentary, though he says that since covid they're in the cells 23:1 hour a day. denies fhmx of PE/DVT to his knowledge, has never had this issue before. denies trouble or pain with breathing. Review of Systems Constitutional: no fever, no chills and no body aches Respiratory: no cough, no dyspnea and no pain on inspiration Cardiovascular: + chest pain; no palpitations, no syncope and no edema Gastrointestinal: no abdominal pain, no nausea, no vomiting, no constipation and no diarrhea/loose stools Physical Exam Physical Exam: Constitutional: tall male in no apparent distress, laying comfortably in bed. Eyes: EOMI, pupils equal and reactive bilaterally, no scleral icterus Cardiac: RRR, no murmurs, gallops or rubs. Normal S1, S2 Pulm: CTA BL, no wheezes, rhonchi, crackles or rubs, moving air well throughout both lungs Abd: soft, nontender, nondistended, normal bowel sounds, no rebound or guarding Extremities: 2+ peripheral pulses, no edema Neuro: no focal deficits, moving all 4 limbs, A&Ox3 Results & Data Results & Data ([facility]) Vital Signs (Past 12 Hours) Vital Signs Temp Pulse Pulse Resp BP Pulse Ox 01/13/20 11:53 36.6 C 80 22 146/70 H 94 01/13/20 10:00 59 L 01/13/20 07:55 36.7 C 75 22 100/65 95 01/13/20 04:50 36.4 C L 71 18 121/80 97 01/13/20 03:10 65 18 98 Laboratory Results WBC 5.87 K/uL (4.8-10.8) 01/13/20 07:22 RBC 4.10 M/uL (4.7-6.1) L 01/13/20 07:22 Hgb 12.5 g/dL (14.0-18.0) L 01/13/20 07:22 Hct 37.8 % (42-52) L 01/13/20 07:22 MCV 92.2 fL (80-100) 01/13/20 07:22 MCH 30.5 pg (25-34) 01/13/20 07:22 MCHC 33.1 g/dL (32-36) 01/13/20 07:22 RDW Std Deviation 50.8 fL (36.4-46.3) H 01/13/20 07:22 RDW Coeff of Josefina 15.0 % (11.5-14.5) H 01/13/20 07:22 Plt Count 247 K/uL (130-400) 01/13/20 07:22 MPV 9.4 fL (7.4-10.4) 01/13/20 07:22 Immature Gran % (Auto) 0.2 % 01/12/20 11:14 Neut % (Auto) 57.5 % 01/12/20 11:14 Lymph % (Auto) 32.3 % 01/12/20 11:14 Kimble % (Auto) 7.5 % 01/12/20 11:14 Eos % (Auto) 2.3 % 01/12/20 11:14 Baso % (Auto) 0.2 % 01/12/20 11:14 Neut # (Auto) 3.71 K/uL (1.4-6.5) 01/12/20 11:14 Lymph # (Auto) 2.08 K/uL (1.2-3.4) 01/12/20 11:14 Kimble # (Auto) 0.48 K/uL (0.11-0.59) 01/12/20 11:14 Eos # (Auto) 0.15 K/uL (0-0.5) 01/12/20 11:14 Baso # (Auto) 0.01 K/uL (0-0.2) 01/12/20 11:14 Immature Gran # (Auto) 0.01 K/uL (0.00-0.02) 01/12/20 11:14 PT 11.9 Seconds (9.0-12.0) 01/13/20 07:22 INR 1.1 (0.9-1.1) 01/13/20 07:22 APTT 51.3 Seconds (21.0-31.0) H* 01/13/20 07:22 PTT Ratio 1.8 01/13/20 07:22 Sodium 143 mmol/L (136-145) 01/13/20 07:22 Potassium 4.0 mmol/L (3.5-5.1) 01/13/20 07:22 Chloride 110 mmol/L (98-107) H 01/13/20 07:22 Carbon Dioxide 27 mmol/L (21-32) 01/13/20 07:22 Anion Gap 6.0 (3-11) 01/13/20 07:22 BUN 7 mg/dl (7-18) 01/13/20 07:22 Creatinine 1.12 mg/dl (0.6-1.4) 01/13/20 07:22 Est Cr Clr Drug Dosing 176.1 ml/min 01/13/20 07:22 Est GFR ( Amer) 98.8 01/13/20 07:22 Est GFR (Non-Af Amer) 85.2 01/13/20 07:22 BUN/Creatinine Ratio 6.1 (10-20) L 01/13/20 07:22 Glucose 102 mg/dl (70-99) H 01/13/20 07:22 Calcium 8.3 mg/dl (8.5-10.1) L 01/13/20 07:22 Magnesium 2.2 mg/dl (1.8-2.4) 01/13/20 07:22 Total Bilirubin 0.2 mg/dl (0.2-1) 01/13/20 07:22 AST 31 U/L (15-37) 01/13/20 07:22 ALT 36 U/L (12-78) 01/13/20 07:22 Alkaline Phosphatase 41 U/L (45-117) L 01/13/20 07:22 Total Creatine Kinase 2563 U/L (39-308) H 01/13/20 07:22 CK-MB (CK-2) 8.5 ng/ml (0.5-3.6) H 01/12/20 11:14 CK/CKMB % Calc 0.3 (0-3.0) 01/12/20 11:14 Troponin I < 0.015 ng/ml (0-0.045) 01/12/20 11:14 Total Protein 7.2 gm/dl (6.4-8.2) 01/13/20 07:22 Albumin 3.2 gm/dl (3.4-5.0) L 01/13/20 07:22 Globulin 4.0 gm/dl (2.5-4.0) 01/13/20 07:22 Albumin/Globulin Ratio 0.8 (0.9-2) L 01/13/20 07: Lipase 124 U/L (73-393) 01/12/20 11:14 TSH 4.800 uIu/ml (0.300-4.500) H 01/13/20 07:22 Free T4 0.90 ng/dl (0.8-1.6) 01/13/20 07:22 Urine Color Yellow 01/12/20 19:45 Urine Appearance Clear (Clear) 01/12/20 19:45 Urine pH 6.0 (4.5-7.5) 01/12/20 19:45 Ur Specific Temple 1.038 (1.000-1.030) H 01/12/20 19:45 Urine Protein Negative (Negative) 01/12/20 19:45 Urine Glucose (UA) Negative (Negative) 01/12/20 19:45 Urine Ketones Negative (Negative) 01/12/20 19:45 Urine Blood Negative (Negative) 01/12/20 19:45 Urine Nitrite Negative (Negative) 01/12/20 19:45 Urine Bilirubin Negative (Negative) 01/12/20 19:45 Urine Urobilinogen Negative (Negative) 01/12/20 19:45 Ur Leukocyte Esterase Negative (Negative) 01/12/20 19:45 Resident Activity Tracking Resident Involvement: Resident Care Provided Care Provided: Adult Hospital Medicine (1) Rhabdomyolysis Rhabdomyolysis type: non-traumatic Qualified Code(s): M62.82 - Rhabdomyolysis (2) Low back pain Back pain laterality: unspecified Chronicity: acute Sciatica laterality: sciatica of left side Sciatica presence: with sciatica Qualified Code(s): M54.42 - Lumbago with sciatica, left side
[2020-01-13] MEDS ORDERED: STANDARD WARFARIN NOMOGRAM SCH (14:00)
[2020-01-13] MEDS: WARFARIN SOD 2 MG TAB PO SCH (15:27)
[2020-01-13] MEDS: WARFARIN SOD 5 MG TAB PO SCH (15:28)
[2020-01-13] MEDS: PANTOprazole 40 MG TAB PO SCH (15:28)
[2020-01-13] MEDS: traZODone HCL 100 MG TAB PO SCH (22:32)
[2020-01-13] MEDS: ARIPIprazole 1 MG/ML ORAL SOLN 150 ML BTL PO SCH (22:32)
[2020-01-13] MEDS: diphenhydrAMINE Capsule 25 MG CAP PO SCH (22:32)
[2020-01-14] MEDS: HEPARIN SODIUM/DEXTROSE 25,000 UNITS/500 ML BAG IV SCH ×3 (01:51→23:08)
[2020-01-14 07:33] LABS: Basophils # (auto) 0.01 K/uL (0-0.2); Basophils % (auto) 0.2 %; Eosinophils % (auto) 3.2 %; Hematocrit (blood only) 39.8 % (42-52); Immature Granulocytes # (auto) 0.01 K/uL (0.00-0.02); Immature Granulocytes % (auto) 0.2 %; Lymphocytes # (auto) 2.34 K/uL (1.2-3.4); Lymphocytes % (auto) 37.1 %; Mean Corpuscular Hemoglobin 30.5 pg (25-34); Mean Corpuscular Hgb Conc 32.7 g/dL (32-36); Mean Corpuscular Volume 93.4 fL (80-100); Mean Platelet Volume 9.4 fL (7.4-10.4); Monocytes # (auto) 0.43 K/uL (0.11-0.59); Monocytes % (auto) 6.8 %; Neutrophils # (auto) 3.31 K/uL (1.4-6.5); Neutrophils % (auto) 52.5 %; Platelet Count 294 K/uL (130-400); RDW Coefficient of Variation 15.1 % (11.5-14.5); RDW Standard Deviation 50.8 fL (36.4-46.3); Red Blood Count 4.26 M/uL (4.7-6.1)
[2020-01-14 08:06] LABS: INR 1.1 (0.9-1.1); Partial Thromboplastin Ratio 1.8; Prothrombin Time 11.8 Seconds (9.0-12.0)
[2020-01-14] MEDS: SODIUM CHLORIDE 0.9% 1000ML 1,000 ML IV SCH ×2 (08:34→16:19)
[2020-01-14 09:58] LABS: BUN Creatinine Ratio 6.7 (10-20); Calcium 8.8 mg/dl (8.5-10.1); Creatinine Clr Calc Pharmacy 169.9 ml/min; Est GFR (African American) 94.7; Est GFR (Non-African American) 81.7
--- NOTE | 2020-01-14 12:05 | Hospitalist Progress Note ---
Date of Service January 14, 2020 Assessment & Plan (1) Embolism, pulmonary with infarction: 34 yo M inmate with hx bipolar disorder admitted for segmental and sub- segmental PE. Pulmonary embolism with pulmonary infarct - CTA: segmental and subsegmental PEs in LLL with developing pulmonary infarct - heparin drip for anticoagulation - BL LE dopplers negative for DVT - hypercoagulable panel of protein C,s, antithrombin, antiphopholipid, factor v leiden pending - Given weight, unable to use DOAC for future anticoagulation. Transition to warfarin started with 7 mg warfarin x 2 days. Warfarin nomogram to follow; d/c heparin when INR between 2-3 for 2 days. - morphine 4 mg IV Q3H PRN Rhabdo, unclear etiology - CK 3500 on admission - NS for rehydration - encourage PO fluid intake - repeat ck this AM 1963, downtrending Bipolar disorder - continue aripiprazole 2mg HS, trazodone 200 mg HS DVT ppx; on heparin drip FEN/GI: regular diet Code status: full code Dispo: Med/Surg Admission and Anticipated Discharge Date Admission Date: January 12, 2020 Supervising Physician Co-Signing Physician Notes I saw the patient concurrent resident physician and confirmed rodriguez portions of the history and exam. Agree with impression and plan as noted in the resident documentation. He denies chest pain or shortness of breath. SPO2 94 percent on RA. Blood pressure 132/83, pulse 60. Respiratory rate 20. CV RRR, distant. Lungs clear. PE Rhabdomyolysis Hematuria Continue therapeutic heparin drip and warfarin Due to his weight, Lovenox and NOAC not feasible. Total creatinine kinase continues to improve; monitor. Subjective Tino Barkley was doing better today. He brought up that he was the second oldest child and that he did not have a family history of blood clots. He was concerned that his back pain was related to his blood clot, and after discussing it with him discussed that these were likely unrelated separate pathologies that were occurring at the same time. Review of Systems Review of Systems: Constitutional: denies fevers, chills Cardiac: denies chest pain, palpitations Pulm: denies cough, shortness of breath, sputum production Abd.: denies nausea, vomiting, abdominal pain, constipation, diarrhea Physical Exam Physical Exam: Constitutional: obese AA male in no apparent distress, laying comfortably in bed. Eyes: EOMI, pupils equal and reactive bilaterally, no scleral icterus Cardiac: RRR, no murmurs, gallops or rubs. Normal S1, S2 Pulm: CTA BL, no wheezes, rhonchi, crackles or rubs, moving air well throughout both lungs Abd: soft, nontender, nondistended, normal bowel sounds, no rebound or guarding Extremities: 2+ peripheral pulses, no edema Neuro: no focal deficits, moving all 4 limbs, A&Ox3 Results & Data Results & Data ([facility]) Vital Signs (Past 12 Hours) Vital Signs Temp Pulse Resp BP Pulse Ox 01/14/20 11:44 37.1 C 92 H 20 132/83 94 01/14/20 07:00 36.5 C 78 20 161/84 H 94 01/14/20 03:57 36.5 C 73 20 118/72 94 CBC Results Results Complete Blood Count Results: RBC 4.26 M/uL (4.7-6.1) L 01/14/20 WBC 6.30 K/uL (4.8-10.8) 01/14/20 Hgb 13.0 g/dL (14.0-18.0) L 01/14/20 Hct 39.8 % (42-52) L 01/14/20 Plt Count 294 K/uL (130-400) 01/14/20 Chemistry (BMP) Results BMP Results: Sodium 143 mmol/L (136-145) 01/14/20 Potassium 4.0 mmol/L (3.5-5.1) 01/14/20 Chloride 110 mmol/L (98-107) H 01/14/20 BUN 8 mg/dl (7-18) 01/14/20 Creatinine 1.16 mg/dl (0.6-1.4) 01/14/20 Glucose 98 mg/dl (70-99) 01/14/20 Resident Activity Tracking Resident Involvement: Resident Care Provided Care Provided: Adult Hospital Medicine
[2020-01-14] MEDS: PANTOprazole 40 MG TAB PO SCH (12:56)
[2020-01-14] MEDS: WARFARIN SOD 2 MG TAB PO SCH (16:18)
[2020-01-14] MEDS: WARFARIN SOD 5 MG TAB PO SCH (16:18)
[2020-01-14] MEDS: ARIPIprazole 1 MG/ML ORAL SOLN 150 ML BTL PO SCH (20:06)
[2020-01-14] MEDS: traZODone HCL 100 MG TAB PO SCH (20:07)
[2020-01-14] MEDS: diphenhydrAMINE Capsule 25 MG CAP PO SCH (20:07)
[2020-01-15] MEDS: SODIUM CHLORIDE 0.9% 1000ML 1,000 ML IV SCH ×3 (02:46→21:57)
[2020-01-15] MEDS: PANTOprazole 40 MG TAB PO SCH (07:55)
[2020-01-15 08:36] LABS: Basophils # (auto) 0.01 K/uL (0-0.2); Basophils % (auto) 0.2 %; Eosinophils # (auto) 0.24 K/uL (0-0.5); Eosinophils % (auto) 3.7 %; Hematocrit (blood only) 40.1 % (42-52); Hemoglobin 13.2 g/dL (14.0-18.0); Immature Granulocytes # (auto) 0.02 K/uL (0.00-0.02); Immature Granulocytes % (auto) 0.3 %; Lymphocytes # (auto) 2.29 K/uL (1.2-3.4); Lymphocytes % (auto) 34.9 %; Mean Corpuscular Hemoglobin 30.4 pg (25-34); Mean Corpuscular Hgb Conc 32.9 g/dL (32-36); Mean Corpuscular Volume 92.4 fL (80-100); Mean Platelet Volume 9.4 fL (7.4-10.4); Monocytes % (auto) 7.6 %; Neutrophils % (auto) 53.3 %; Platelet Count 272 K/uL (130-400); RDW Coefficient of Variation 15.1 % (11.5-14.5); RDW Standard Deviation 50.8 fL (36.4-46.3); Red Blood Count 4.34 M/uL (4.7-6.1); White Blood Count 6.56 K/uL (4.8-10.8)
[2020-01-15] MEDS: HEPARIN SODIUM/DEXTROSE 25,000 UNITS/500 ML BAG IV SCH ×2 (08:43→18:29)
[2020-01-15 09:15] LABS: INR 1.2 (0.9-1.1); Partial Thromboplastin Ratio 1.9; Prothrombin Time 12.4 Seconds (9.0-12.0)
[2020-01-15 09:36] LABS: Partial Thromboplastin Time 54.1 Seconds (21.0-31.0)
--- NOTE | 2020-01-15 12:48 | Electrocardiogram Report ---
Test Reason : Blood Pressure : / mmHG Vent. Rate : 089 BPM Atrial Rate : 089 BPM P-R Int : 158 ms QRS Dur : 090 ms QT Int : 390 ms P-R-T Axes : 044 003 025 degrees QTc Int : 474 ms Normal sinus rhythm Normal ECG When compared with ECG of 12-JAN-2020 10:55, Criteria for Septal infarct are no longer Present Confirmed by Fred Vasquez ([id number]) on 01/15/2020 12:48:31 PM Referred By: REFERRED SELF Confirmed By:Fred Vasquez
--- NOTE | 2020-01-15 14:48 | Hospitalist Progress Note ---
Date of Service January 15, 2020 Assessment & Plan (1) Embolism, pulmonary with infarction: 34 yo M inmate with hx bipolar disorder admitted for segmental and sub- segmental PE. Pulmonary embolism with pulmonary infarct - CTA: segmental and subsegmental PEs in LLL with developing pulmonary infarct - heparin drip for anticoagulation - BL LE dopplers negative for DVT - hypercoagulable panel of protein C,s, antithrombin, antiphopholipid, factor v leiden pending - Given weight, unable to use DOAC for future anticoagulation. Transition to warfarin started with 7 mg warfarin x 2 days and 10 mg for day 3. Warfarin nomogram to follow; d/c heparin when INR between 2-3 for 2 days. - morphine 4 mg IV Q3H PRN - ordered ECHO to evaluate for right heart strain and for baseline Rhabdo, unclear etiology could be related to PE - CK 3500 on admission - NS for rehydration - encourage PO fluid intake - repeat ck 1962, downtrending Bipolar disorder - continue aripiprazole 2mg HS, trazodone 200 mg HS DVT ppx; on heparin drip FEN/GI: regular diet Code status: full code Dispo: Med/Surg Admission and Anticipated Discharge Date Admission Date: January 12, 2020 Supervising Physician Co-Signing Physician Notes I saw the patient concurrent resident physician and confirmed rodriguez portions of the history and exam. Agree with impression and plan as noted in the resident documentation. Intermittent chest symptoms but no worse - better actually - than admission. SPO2 97 percent on RA. Blood pressure variable; a few elevated readings but many in 120s-130s. CV RRR, distant. Lungs clear. PE Rhabdomyolysis Hematuria Continue therapeutic heparin drip and warfarin. Due to his weight, Lovenox and NOAC not feasible. Total creatinine kinase continues to improve; monitor. Check echocardiogram. Subjective Filippo Jiménez is doing well this morning. He had no questions or concerns this morning. Review of Systems Review of Systems: Constitutional: denies fevers, chills Cardiac: denies chest pain, palpitations Pulm: denies cough, shortness of breath, sputum production Abd.: denies nausea, vomiting, abdominal pain, constipation, diarrhea Physical Exam Physical Exam: Constitutional: obese AA male in no apparent distress, laying comfortably in bed. Eyes: EOMI, pupils equal and reactive bilaterally, no scleral icterus Cardiac: RRR, no murmurs, gallops or rubs. Normal S1, S2 Pulm: CTA BL, no wheezes, rhonchi, crackles or rubs, moving air well throughout both lungs Abd: soft, nontender, nondistended, normal bowel sounds, no rebound or guarding Extremities: 2+ peripheral pulses, no edema Neuro: no focal deficits, moving all 4 limbs, A&Ox3 Results & Data Results & Data ([facility]) Vital Signs (Past 12 Hours) Vital Signs Temp Pulse Pulse Resp BP Pulse Ox 01/15/20 07:46 61 01/15/20 07:00 36.4 C L 66 20 169/69 H 97 01/15/20 03:01 36.4 C L 61 19 124/69 95
[2020-01-15] MEDS ORDERED: WARFARIN SOD 10 MG TAB PO ONE (16:00)
[2020-01-15] MEDS: ACETAMINOPHEN 325 MG TAB PO PRN (16:19)
[2020-01-15] MEDS: ARIPIprazole 1 MG/ML ORAL SOLN 150 ML BTL PO SCH (21:53)
[2020-01-15] MEDS: traZODone HCL 100 MG TAB PO SCH (21:53)
[2020-01-15] MEDS: diphenhydrAMINE Capsule 25 MG CAP PO SCH (21:54)
[2020-01-16] MEDS: HEPARIN SODIUM/DEXTROSE 25,000 UNITS/500 ML BAG IV SCH ×2 (03:54→16:04)
[2020-01-16 05:58] LABS: BUN Creatinine Ratio 7.6 (10-20); Calcium 8.4 mg/dl (8.5-10.1); Est GFR (African American) 95.7; Est GFR (Non-African American) 82.6; Potassium 3.8 mmol/L (3.5-5.1)
[2020-01-16 06:18] LABS: INR 1.4 (0.9-1.1); Partial Thromboplastin Ratio 3.6; Prothrombin Time 14.4 Seconds (9.0-12.0)
[2020-01-16 06:54] LABS: Partial Thromboplastin Time 101.3 Seconds (21.0-31.0)
[2020-01-16] MEDS: PANTOprazole 40 MG TAB PO SCH (07:56)
[2020-01-16] MEDS: SODIUM CHLORIDE 0.9% 1000ML 1,000 ML IV SCH ×2 (07:56→16:12)
--- NOTE | 2020-01-16 08:26 | Hospitalist Progress Note ---
Date of Service January 16, 2020 Assessment & Plan (1) Embolism, pulmonary with infarction: 34 yo M inmate with hx bipolar disorder admitted for segmental and sub- segmental PE. Pulmonary embolism with pulmonary infarct - CTA: segmental and subsegmental PEs in LLL with developing pulmonary infarct - heparin drip for anticoagulation while bridging to Warfarin - BL LE dopplers negative for DVT - hypercoagulable panel of protein C,s, antithrombin, antiphospholipid, factor v leiden pending - Given weight, unable to use DOAC for future anticoagulation. Transition to warfarin following nomogram. - Will DC heparin when INR between 2-3 for 2 days. - morphine 4 mg IV Q3H PRN - ordered ECHO to evaluate for right heart strain and for baseline -- Grossly normal LV seize with EF 55-60% Rhabdomyolysis - CK 3500 on admission, since downtrending - NS for rehydration - encourage PO fluid intake - ?Secondary to body habitus and lack of movement - Patient notes that while in nursing home they only have 1 hour where they are allowed out into the yard, the remainder of the time he spends sitting in his cell. Bipolar disorder - continue aripiprazole 2mg HS, trazodone 200 mg HS DVT ppx: on heparin drip, transitioning to Warfarin FEN/GI: regular diet Code status: full code Dispo: Med/Surg Admission and Anticipated Discharge Date Admission Date: January 12, 2020 Supervising Physician Co-Signing Physician Notes I personally examined the patient and verified all rodriguez points of history and exam, discussed case, and agree with decision making with Dr Ramirez. some chest pressure - positional. otherwise feeling about the same. in cell 23hrs a day - notes mostly ends up sitting around and watching TV then vitals noted nad heent nc at mmm lungs cta b/l no r/r/w good effort skin no rashes no pallor or icterus PE - due to mass can't safely transition to DOAC and doubt could get efficacy from lovenox. titrating up coumadin and currently on heparin gtt. strongly suspect current chest sx from PE/infarct - follow / supportive care mild rhabdo - mild, but only real inciting factors would be baseline body mass and sitting in cell for prolonged periods. seems asymptomatic. follow clinically, would also recommend following CPK periodically to r/o underlying muscle/neuromuscular disorder otherwise as above Subjective Patient examined at the bedside this AM. Noting that over all he was feeling well without concerns. He stated that he did have some slight discomfort with deep inhalation, but that it was relatively mild. No other concerns at this time. Review of Systems Constitutional: no fever, no chills and no weakness Eyes: no worsening vision Respiratory: + pain on inspiration (primarily with deep inspiration); no c ough, no dyspnea and no wheezing Cardiovascular: no chest pain, no dyspnea on exertion and no palpitations Gastrointestinal: no abdominal pain, no nausea, no vomiting, no constipation and no diarrhea/loose stools Physical Exam Constitutional: WD/WN, vitals as above Respiratory: normal respiratory effort, lungs clear to auscultation Cardiovascular: RRR, no murmur, no edema Gastrointestinal (Abdomen): normal bowel sounds, soft, nontender, no hepatosplenomegaly Results & Data Results & Data ([facility]) Vital Signs (Past 12 Hours) Vital Signs Temp Pulse Pulse Resp BP Pulse Ox 01/16/20 07:28 63 01/16/20 07:00 36.6 C 65 20 127/75 96 01/16/20 05:15 66 01/16/20 05:12 36.9 C 68 18 132/70 94 01/16/20 03:32 66 20 96 01/16/20 00:20 88 18 95 01/15/20 23:00 36.7 C 65 18 139/72 95 Resident Activity Tracking Resident Involvement: Resident Care Provided Care Provided: Adult [facility]
--- NOTE | 2020-01-16 12:25 | XCELERA ---
[id number]
[2020-01-16 14:43] LABS: Partial Thromboplastin Ratio 2.5
[2020-01-16 14:46] LABS: Partial Thromboplastin Time 68.4 Seconds (21.0-31.0)
[2020-01-16] MEDS ORDERED: WARFARIN SOD 10 MG TAB PO ONE (16:00)
[2020-01-16] MEDS: ACETAMINOPHEN 325 MG TAB PO PRN (16:04)
--- NOTE | 2020-01-16 18:19 | Billing Data ---
Date of Service January 16, 2020 Coding Level of Care Code 76447 Subseq Hosp Care Lvl 3
[2020-01-16] MEDS: ARIPIprazole 1 MG/ML ORAL SOLN 150 ML BTL PO SCH (20:33)
[2020-01-16] MEDS: traZODone HCL 100 MG TAB PO SCH (20:34)
[2020-01-16] MEDS: diphenhydrAMINE Capsule 25 MG CAP PO SCH (20:34)
[2020-01-16 21:48] LABS: Partial Thromboplastin Ratio 2.6
[2020-01-16 21:52] LABS: Partial Thromboplastin Time 71.2 Seconds (21.0-31.0)
[2020-01-17] MEDS: SODIUM CHLORIDE 0.9% 1000ML 1,000 ML IV SCH ×3 (02:07→23:40)
[2020-01-17] MEDS: HEPARIN SODIUM/DEXTROSE 25,000 UNITS/500 ML BAG IV SCH ×2 (04:43→18:34)
[2020-01-17 06:30] LABS: Basophils # (auto) 0.01 K/uL (0-0.2); Basophils % (auto) 0.2 %; Eosinophils # (auto) 0.24 K/uL (0-0.5); Eosinophils % (auto) 3.7 %; Hematocrit (blood only) 38.5 % (42-52); Hemoglobin 12.4 g/dL (14.0-18.0); Immature Granulocytes # (auto) 0.02 K/uL (0.00-0.02); Immature Granulocytes % (auto) 0.3 %; Lymphocytes # (auto) 2.19 K/uL (1.2-3.4); Lymphocytes % (auto) 33.9 %; Mean Corpuscular Hemoglobin 30.1 pg (25-34); Mean Corpuscular Hgb Conc 32.2 g/dL (32-36); Mean Corpuscular Volume 93.4 fL (80-100); Mean Platelet Volume 9.4 fL (7.4-10.4); Monocytes # (auto) 0.44 K/uL (0.11-0.59); Monocytes % (auto) 6.8 %; Neutrophils # (auto) 3.56 K/uL (1.4-6.5); Neutrophils % (auto) 55.1 %; Platelet Count 280 K/uL (130-400); RDW Coefficient of Variation 15.1 % (11.5-14.5); RDW Standard Deviation 51.4 fL (36.4-46.3); Red Blood Count 4.12 M/uL (4.7-6.1); White Blood Count 6.46 K/uL (4.8-10.8)
[2020-01-17 06:48] LABS: INR 1.9 (0.9-1.1); Partial Thromboplastin Ratio 2.1; Prothrombin Time 19.3 Seconds (9.0-12.0)
--- NOTE | 2020-01-17 06:49 | Hospitalist Progress Note ---
Date of Service January 17, 2020 Assessment & Plan (1) Embolism, pulmonary with infarction: 34 yo M inmate with hx bipolar disorder admitted for segmental and sub- segmental PE. Pulmonary embolism with pulmonary infarct - CTA: segmental and subsegmental PEs in LLL with developing pulmonary infarct - heparin drip for anticoagulation while bridging to Warfarin - BL LE dopplers negative for DVT - hypercoagulable panel of protein C,s, antithrombin, antiphospholipid, factor v leiden pending - Given weight, unable to use DOAC for future anticoagulation. Transition to warfarin following nomogram. - INR at 1.9 today, will receive 7.5mg today. - If INR >2 tomorrow and patient feeling well over all, likely plan for DC - Will DC heparin when INR between 2-3 for 2 days. - morphine 4 mg IV Q3H PRN - ordered ECHO to evaluate for right heart strain and for baseline -- Grossly normal LV seize with EF 55-60% - Given Toradol 30mg IV once today for chest discomfort. Rhabdomyolysis - CK 3500 on admission, since downtrending - NS for rehydration - encourage PO fluid intake - ?Secondary to body habitus and lack of movement - Patient notes that while in alf they only have 1 hour where they are allowed out into the yard, the remainder of the time he spends sitting in his cell. - Can recheck CK in future to ensure reduction of CK or if chronic for patient. Bipolar disorder - continue aripiprazole 2mg HS, trazodone 200 mg HS DVT ppx: on heparin drip, transitioning to Warfarin FEN/GI: regular diet Code status: full code Dispo: Med/Surg Admission and Anticipated Discharge Date Admission Date: January 12, 2020 Supervising Physician Co-Signing Physician Notes I personally examined the patient and verified all rodriguez points of history and exam, discussed case, and agree with decision making with Dr Ramirez. chest pressure ongoing still mostly positional. pain better w tylenol some but then comes back. asks insightful questions about PE/management/ongoing management. notes dad of PE not too long ago apparently. vitals noted nad heent nc at mmm lungs cta b/l no r/r/w good effort skin no rashes no pallor or icterus PE - due to mass can't safely transition to DOAC and doubt could get efficacy from lovenox. (discussed in the future if weight is lost could consider a transition to a DOAC then) titrating up coumadin and currently on heparin gtt. strongly suspect current chest sx from PE/infarct - follow / supportive care / add toradol. w unprovoked clot and fam hx - strongly suspsicious of baseline clotting disorder - would strongly consider indefinite anticoagulation (even without fam hx probably 5-10% risk recurrence at 1yr, and ~15-30% risk recurrence at 5yr --CHEST and [employer] 2016 guidelines would suggest extended anticoagulation) mild rhabdo - mild, but only real inciting factors would be baseline body mass and sitting in cell for prolonged periods. seems asymptomatic. follow clinically, would also recommend following CPK periodically to r/o underlying muscle/neuromuscular disorder otherwise as above Subjective Patient examined at he bedside. Noted he was feeling better today than the day prior. Noted improvement in his breathing, including deep breathing. Does note a bit of positional chest pain yesterday, but that it has also improved overnight. Is still noting occasional chest discomfort and that tylenol tends to wear off. Review of Systems Constitutional: no fever, no chills, no fatigue and no weakness Eyes: no worsening vision Ear, Nose, Mouth, Throat: no dizziness Respiratory: no cough, no dyspnea and no pain on inspiration Cardiovascular: + chest pain (positional); no radiating jaw, neck or arm pain, no dyspnea, no palpitations and no edema Gastrointestinal: no abdominal pain, no nausea, no vomiting, no constipation and no diarrhea/loose stools Genitourinary: no dysuria Physical Exam Constitutional: WD/WN, vitals as above Eyes: PERRL, conjunctivae normal, anicteric sclerae ENMT: external ear and nose normal, oropharynx normal Respiratory: normal respiratory effort, lungs clear to auscultation Cardiovascular: RRR, no murmur, no edema Gastrointestinal (Abdomen): normal bowel sounds, soft, nontender, no hepatosplenomegaly Psychiatric: A+Ox3, euthymic affect Results & Data Results & Data ([facility]) Vital Signs (Past 12 Hours) Vital Signs Temp Pulse Pulse Resp BP Pulse Ox 01/17/20 04:39 36.6 C 83 20 147/65 H 95 01/17/20 04:01 84 18 97 01/17/20 01:28 62 16 97 01/16/20 23:14 36.6 C 74 22 143/79 H 95 Resident Activity Tracking Resident Involvement: Resident Care Provided Care Provided: Adult Hospital Medicine
[2020-01-17 06:52] LABS: Partial Thromboplastin Time 58.7 Seconds (21.0-31.0)
[2020-01-17 07:31] LABS: BUN Creatinine Ratio 7.2 (10-20); Calcium 8.8 mg/dl (8.5-10.1); Creatinine Clr Calc Pharmacy 161.5 ml/min; Est GFR (African American) 89.1; Est GFR (Non-African American) 76.9; Potassium 3.8 mmol/L (3.5-5.1)
[2020-01-17] MEDS: PANTOprazole 40 MG TAB PO SCH (08:43)
[2020-01-17] MEDS ORDERED: KETOROLAC 30 MG/ML VIAL IV ONE (10:40)
[2020-01-17] MEDS ORDERED: WARFARIN SOD 10 MG TAB PO ONE (16:00)
[2020-01-17 16:06] LABS: Protein S Functional(Activity) 78 % (70-150)
--- NOTE | 2020-01-17 20:04 | Billing Data ---
Date of Service January 17, 2020 Coding Level of Care Code 57578 Subseq Hosp Care Lvl 3
[2020-01-17] MEDS: ARIPIprazole 1 MG/ML ORAL SOLN 150 ML BTL PO SCH (20:41)
[2020-01-17] MEDS: traZODone HCL 100 MG TAB PO SCH (20:41)
[2020-01-17] MEDS: diphenhydrAMINE Capsule 25 MG CAP PO SCH (20:41)
[2020-01-18 04:55] LABS: B2 Glycoprotein IgA <9 SAU (<=20); B2 Glycoprotein IgG <9 SGU (<=20); B2 Glycoprotein IgM <9 SMU (<=20); Phosphatidylserine IgG <10 U/mL (<10); Phosphatidylserine IgM <25 U/mL (<25)
--- NOTE | 2020-01-18 06:36 | Hospitalist Progress Note ---
Date of Service January 18, 2020 Assessment & Plan (1) Embolism, pulmonary with infarction: 34 yo M inmate with hx bipolar disorder admitted for segmental and sub- segmental PE. Pulmonary embolism with pulmonary infarct - CTA: segmental and subsegmental PEs in LLL with developing pulmonary infarct - heparin drip for anticoagulation while bridging to Warfarin - BL LE dopplers negative for DVT - hypercoagulable panel of protein C,s, antithrombin, antiphospholipid, factor v leiden pending - Given weight, unable to use DOAC for future anticoagulation. Transition to warfarin following nomogram. - INR at 1.9 today, will receive 7.5mg today. - If INR >2 tomorrow and patient feeling well over all, likely plan for DC - Will DC heparin when INR between 2-3 for 2 days. - morphine 4 mg IV Q3H PRN - ordered ECHO to evaluate for right heart strain and for baseline -- Grossly normal LV seize with EF 55-60% - Given Toradol 30mg IV once today for chest discomfort. Rhabdomyolysis - CK 3500 on admission, since downtrending - NS for rehydration - encourage PO fluid intake - ?Secondary to body habitus and lack of movement - Patient notes that while in correction they only have 1 hour where they are allowed out into the yard, the remainder of the time he spends sitting in his cell. - Can recheck CK in future to ensure reduction of CK or if chronic for patient. Bipolar disorder - continue aripiprazole 2mg HS, trazodone 200 mg HS DVT ppx: on heparin drip, transitioning to Warfarin FEN/GI: regular diet Code status: full code Dispo: Med/Surg Admission and Anticipated Discharge Date Admission Date: January 12, 2020 Results & Data Results & Data ([facility]) Vital Signs (Past 12 Hours) Vital Signs Temp Pulse Pulse Resp BP Pulse Ox 01/18/20 03:25 36.5 C 78 20 109/79 95 01/18/20 00:06 73 01/17/20 23:26 36.7 C 80 19 144/71 H 97 01/17/20 19:19 36.9 C 70 18 133/71 97
[2020-01-18 07:42] LABS: INR 2.1 (0.9-1.1); Partial Thromboplastin Ratio 2.2; Prothrombin Time 21.7 Seconds (9.0-12.0)
[2020-01-18 07:43] LABS: Partial Thromboplastin Time 61.2 Seconds (21.0-31.0)
[2020-01-18] MEDS: HEPARIN SODIUM/DEXTROSE 25,000 UNITS/500 ML BAG IV SCH ×2 (09:25→10:46)
[2020-01-18] MEDS: PANTOprazole 40 MG TAB PO SCH (09:25)
[2020-01-18] MEDS: ACETAMINOPHEN 325 MG TAB PO PRN ×2 (09:59→17:00)
[2020-01-18] MEDS: SODIUM CHLORIDE 0.9% 1000ML 1,000 ML IV SCH (10:01)
[2020-01-18] MEDS ORDERED: WARFARIN SOD 7.5 MG TAB PO SCH (16:00)
--- NOTE | 2020-01-18 16:30 | Discharge Summary ---
Date of Service January 18, 2020 Admission HPI Per Admitting Provider 34yo M w/ hx of bipolar disorder and ALLISON who presents with segmental PE. The patient reported intermittent chest pain that radiated to the back for a few days. He was brought to the ED on 01/10 and worked up for a cardiac rule out and PE. The CTA at that time was very limited, but did not show any central PE. He was discharged back to [facility] and told to follow up with a cardboard cutter. His pain worsened, and he was sent back. This time, the CTA as repeated and a better study, and it showed segmental and subsegmental LLL PEs as well as a pulmonary infarct. On my interview, he reports the pain as waxing and waning and is not having any pain at present. He continues to have some shortness of breath, but feels better on 2L NC. No fevers, chills, cough. He does note he has some "flushing" that has gone on for several months. He reports some possible reddish urine yesterday, but no dysuria or polyuria. Discharge Exam Constitutional WD/WN, vitals as above Eyes PERRL, conjunctivae normal, anicteric sclerae ENMT external ear and nose normal, oropharynx normal Respiratory normal respiratory effort, lungs clear to auscultation Cardiovascular RRR, no murmur, no edema Gastrointestinal (Abdomen) normal bowel sounds, soft, nontender, no hepatosplenomegaly Psychiatric A+Ox3, euthymic affect Discharge Data Allergies Allergy/AdvReac Type Severity Reaction Status Date / Time No Known Allergies Allergy Unverified 01/12/20 13:09 Consultations 01/12/20 13:56 ED Decision to Admit Stat Ordered Studies 01/12/20 10:58 US venous doppler LE BI Stat 01/12/20 10:59 CT angio chest PE protocol Stat 01/12/20 11:22 CT lumbar spine wo con Stat Hospital Course (1) Embolism, pulmonary with infarction: 34 yo M inmate with hx bipolar disorder admitted for segmental and sub- segmental PE. Pulmonary embolism with pulmonary infarct - CTA: segmental and subsegmental PEs in LLL with developing pulmonary infarct - heparin drip for anticoagulation while bridging to Warfarin - BL LE dopplers negative for DVT - hypercoagulable panel of protein C,s, antithrombin, antiphospholipid, factor v leiden pending - Given weight, unable to use DOAC for future anticoagulation. Transition to warfarin following nomogram. - INR at 1.9 today, will receive 7.5mg today. - If INR >2 tomorrow and patient feeling well over all, likely plan for DC - Will DC heparin when INR between 2-3 for 2 days. - morphine 4 mg IV Q3H PRN - ordered ECHO to evaluate for right heart strain and for baseline -- Grossly normal LV seize with EF 55-60% - Given Toradol 30mg IV once today for chest discomfort. Rhabdomyolysis - CK 3500 on admission, since downtrending - NS for rehydration - encourage PO fluid intake - ?Secondary to body habitus and lack of movement - Patient notes that while in intermediate they only have 1 hour where they are allowed out into the yard, the remainder of the time he spends sitting in his cell. - Can recheck CK in future to ensure reduction of CK or if chronic for patient. Bipolar disorder - continue aripiprazole 2mg HS, trazodone 200 mg HS DVT ppx: on heparin drip, transitioning to Warfarin FEN/GI: regular diet Code status: full code Dispo: Med/Surg Discharge Plan Discharge Items [facility]position[facility] Reason For Visit: pulmonary embolism and infarct Discharge Diagnosis: Pulmonary Embolism Condition on Discharge: Good Activity: Per Instructions section Non-emergency contact: Primary Care Provider Call non-emergency contact if: you have any medication questions, your symptoms worsen and your pain is not controlled Follow-up/Referrals: Caden JOAQUIN [Primary Care Provider] - Diet: Regular Addtl Attending Provider Instructions: 34 yo M inmate with hx bipolar disorder admitted for segmental and sub- segmental PE. Pulmonary embolism with pulmonary infarct - CTA: segmental and subsegmental PEs in LLL with developing pulmonary infarct - heparin drip for anticoagulation while bridging to Warfarin - BL LE dopplers negative for DVT - hypercoagulable panel of protein C,s, antithrombin, antiphospholipid, factor v leiden negative. - Given weight, unable to use DOAC for future anticoagulation. Transitioned to warfarin following nomogram. - INR 2.1 on day of discharge and heparin gtt discontinued. - morphine 4 mg IV Q3H PRN -- discontinued on discharge - ordered ECHO to evaluate for right heart strain and for baseline -- Grossly normal LV seize with EF 55-60% - Please continue to take the following: -Warfarin 7.5mg daily as initial starting. Will require titration based on INR goal 2-3. -Tylenol 1000mg up to three times a day for pain as needed -Naproxen 500mg up to twice a day for pain as needed -Please check patients INR in 2 days time on Thursday01/20/20. Rhabdomyolysis - CK 3500 on admission, since downtrending - Rehydrated with normal saline. - ?Secondary to body habitus and lack of movement - Patient notes that while in intermediate they only have 1 hour where they are allowed out into the yard, the remainder of the time he spends sitting in his cell. - Can recheck CK in 1 month to ensure reduction of CK or if chronic for patient. Bipolar disorder - continue aripiprazole 2mg HS, trazodone 200 mg HS Pending Studies at Discharge: No Stand-Alone Forms: My [facility] Skilled Items Patient informed of condition?: Yes Discharge Level of Care: Other Communicable Disease: No Discharge Prognosis: Stable Lines: None Urinary Catheter: No Medications and DC Order Prescriptions: New naproxen [Naprosyn] 500 mg tablet 500 mg PO BID PRN (Reason: pain) Qty: 1 RF: 0 acetaminophen [Tylenol Extra Strength] 500 mg tablet 1,000 mg PO TID PRN (Reason: pain) Qty: 1 RF: 0 warfarin 7.5 mg tablet 7.5 mg PO DAILY Qty: 1 RF: 0 Continued ammonium lactate 12 % Lotion 1 applic TOPICAL DAILY RF: 0 pantoprazole 20 mg Tablet,Delayed Release (Dr/Ec) 20 mg PO DAILY RF: 0 trazodone 100 mg Tablet 200 mg PO HS RF: 0 diphenhydramine HCl [Benadryl] 25 mg Capsule 50 mg PO HS RF: 0 aripiprazole [Abilify] 2 mg Tablet 2 mg PO HS RF: 0 Minerin Creme Cream 1 applic TOPICAL BID RF: 0 Invega Sustenna 156 mg/mL Syringe 156 mg IM UD RF: 0 Discharge Orders: Discharge Order (Routine); Ordered 01/18/20 Ordered By: Brando Ramirez Admission Data Admit Date/Time: 01/12/20 14:29 Attending Provider: Marin Blakely Admit Provider: Bakari Yang Primary Care Provider: [facility] Other Providers: Bakari Yang ; Kalie Blandon ; Yuri Perkins
--- NOTE | 2020-01-18 17:25 | Hospitalist Progress Note ---
Date of Service January 18, 2020 Assessment & Plan (1) Embolism, pulmonary with infarction: 34 yo M inmate with hx bipolar disorder admitted for segmental and sub- segmental PE. Pulmonary embolism with pulmonary infarct - CTA: segmental and subsegmental PEs in LLL with developing pulmonary infarct - heparin drip for anticoagulation while bridging to Warfarin - BL LE dopplers negative for DVT - hypercoagulable panel of protein C,s, antithrombin, antiphospholipid, factor v leiden negative - Given weight, unable to use DOAC for future anticoagulation. Transition to warfarin following nomogram. - INR at 2.1 today, will receive 7.5mg today. - Heparin gtt dc'd - morphine 4 mg IV Q3H PRN - ordered ECHO to evaluate for right heart strain and for baseline -- Grossly normal LV seize with EF 55-60% - Toradol improves pain, will transition to Naproxen and Tylenol at discharge. - Planned for discharge today, however, [facility] unable to take patient back due to staffing issues. Will discharge in AM tomorrow. Rhabdomyolysis - CK 3500 on admission, since downtrending - NS for rehydration - encourage PO fluid intake - ?Secondary to body habitus and lack of movement - Patient notes that while in longterm they only have 1 hour where they are allowed out into the yard, the remainder of the time he spends sitting in his cell. - Can recheck CK in future to ensure reduction of CK or if chronic for patient. Bipolar disorder - continue aripiprazole 2mg HS, trazodone 200 mg HS DVT ppx: DC hep gtt, Warfarin FEN/GI: regular diet Code status: full code Dispo: Med/Surg - plan for DC to [facility] tomorrow Admission and Anticipated Discharge Date Admission Date: January 12, 2020 Supervising Physician Co-Signing Physician Notes I personally examined the patient and verified all rodriguez points of history and exam, discussed case, and agree with decision making with Dr Ramirez. feels about the same. updated on plans. asks good questions. vitals noted nad heent nc at mmm lungs cta b/l no r/r/w good effort skin no rashes no pallor or icterus PE - due to mass can't safely transition to DOAC and doubt could get efficacy from lovenox. (discussed in the future if weight is lost could consider a transition to a DOAC then) INR now therapeutic - waiting for longterm to be able to accept him back. ongoing tylenol/nsaid for pain - anticipate ongoing improvement mild rhabdo - mild, but only real inciting factors would be baseline body mass and sitting in cell for prolonged periods. seems asymptomatic. follow clinically, would also recommend following CPK periodically to r/o underlying muscle/neuromuscular disorder otherwise as above Subjective Patient evaluated at the bedside this AM. Noted that his chest discomfort was improving, but still present when laying down flat. Analgesics improve pain. No other concerns at this time. Review of Systems Constitutional: no fever, no chills, no fatigue and no weakness Eyes: no worsening vision Ear, Nose, Mouth, Throat: no dizziness Respiratory: no cough, no dyspnea and no pain on inspiration Cardiovascular: + chest pain (positional); no radiating jaw, neck or arm pain, no dyspnea, no palpitations and no edema Gastrointestinal: no abdominal pain, no nausea, no vomiting, no constipation and no diarrhea/loose stools Genitourinary: no dysuria Physical Exam Constitutional: WD/WN, vitals as above Eyes: PERRL, conjunctivae normal, anicteric sclerae ENMT: external ear and nose normal, oropharynx normal Respiratory: normal respiratory effort, lungs clear to auscultation Cardiovascular: RRR, no murmur, no edema Gastrointestinal (Abdomen): normal bowel sounds, soft, nontender, no hepatosplenomegaly Psychiatric: A+Ox3, euthymic affect Results & Data Results & Data ([facility]) Vital Signs (Past 12 Hours) Vital Signs Temp Pulse Pulse Pulse Resp BP BP 01/18/20 17:21 36.7 C 91 H 78 22 119/70 118/67 01/18/20 16:00 79 01/18/20 12:05 36.7 C 78 22 119/70 01/18/20 08:09 36.7 C 69 20 128/78 01/18/20 08:00 81 Pulse Ox 01/18/20 17:21 95 01/18/20 16:00 01/18/20 12:05 95 01/18/20 08:09 98 01/18/20 08:00 Resident Activity Tracking Resident Involvement: Resident Care Provided Care Provided: [facility] Medicine
--- NOTE | 2020-01-18 19:13 | Billing Data ---
Date of Service January 18, 2020 Coding Level of Care Code 65405 Subseq Hosp Care Lvl 2
[2020-01-18] MEDS: ARIPIprazole 1 MG/ML ORAL SOLN 150 ML BTL PO SCH (21:34)
[2020-01-18] MEDS: traZODone HCL 100 MG TAB PO SCH (21:35)
[2020-01-18] MEDS: diphenhydrAMINE Capsule 25 MG CAP PO SCH (21:40)
[2020-01-18] MEDS ORDERED: POLYETHYLENE (MIRALAX) 17 GM PACK ONE (21:49)
[2020-01-18] MEDS ORDERED: POLYETHYLENE (MIRALAX) 17 GM PACK PO PRN (21:55)
--- NOTE | 2020-01-19 07:07 | Discharge Summary ---
Date of Service January 19, 2020 Admission HPI Per Admitting Provider 34yo M w/ hx of bipolar disorder and ALLISON who presents with segmental PE. The patient reported intermittent chest pain that radiated to the back for a few days. He was brought to the ED on 01/10 and worked up for a cardiac rule out and PE. The CTA at that time was very limited, but did not show any central PE. He was discharged back to [facility] and told to follow up with a talent acquisition consultant. His pain worsened, and he was sent back. This time, the CTA as repeated and a better study, and it showed segmental and subsegmental LLL PEs as well as a pulmonary infarct. On my interview, he reports the pain as waxing and waning and is not having any pain at present. He continues to have some shortness of breath, but feels better on 2L NC. No fevers, chills, cough. He does note he has some "flushing" that has gone on for several months. He reports some possible reddish urine yesterday, but no dysuria or polyuria. Admission Exam Per Admitting Provider Constitutional: WD/WN, vitals as above + morbidly obese Eyes: EOM intact bilaterally; no conjunctival abnormality ENMT: external ear and nose normal, oropharynx normal Neck: trachea midline, no thyromegaly normal visual inspection Respiratory: normal respiratory effort, lungs clear to auscultation + labored breathing; no respiratory distress Auscultation: + diminished lung sounds Cardiovascular: RRR, no murmur, no edema Gastrointestinal (Abdomen): Inspection/Auscultation: abdomen normal to inspection; abdomen not distended Musculoskeletal: no cyanosis or clubbing, extremities motor strength 5/5 Skin: no rashes, warm and dry Neurologic: moves all extremities and awake Psychiatric: Orientation: alert, oriented to person and cooperative Principal Diagnosis Pulmonary Embolus Discharge Exam Constitutional WD/WN, vitals as above Neck trachea midline, no thyromegaly Respiratory normal respiratory effort, lungs clear to auscultation Cardiovascular RRR, no murmur, no edema Gastrointestinal (Abdomen) normal bowel sounds, soft, nontender, no hepatosplenomegaly Discharge Data Allergies Allergy/AdvReac Type Severity Reaction Status Date / Time No Known Allergies Allergy Unverified 01/12/20 13:09 Consultations 01/12/20 13:56 ED Decision to Admit Stat Ordered Studies 01/12/20 10:58 US venous doppler LE BI Stat 01/12/20 10:59 CT angio chest PE protocol Stat 01/12/20 11:22 CT lumbar spine wo con Stat Hospital Course (1) Embolism, pulmonary with infarction: 34 yo M inmate with hx bipolar disorder admitted for segmental and sub- segmental PE. Pulmonary embolism with pulmonary infarct - CTA: segmental and subsegmental PEs in LLL with developing pulmonary infarct - heparin drip for anticoagulation while bridging to Warfarin - BL LE dopplers negative for DVT - hypercoagulable panel of protein C,s, antithrombin, antiphospholipid, factor v leiden negative. - Given weight, unable to use DOAC for future anticoagulation. Transitioned to warfarin following nomogram. - INR 2.4 on day of discharge and heparin gtt discontinued. - morphine 4 mg IV Q3H PRN -- discontinued on discharge - ordered ECHO to evaluate for right heart strain and for baseline -- Grossly normal LV seize with EF 55-60% - Please continue to take the following: -Warfarin 7.5mg daily as initial starting. Will require titration based on INR goal 2-3. -Tylenol 1000mg up to three times a day for pain as needed -Naproxen 500mg up to twice a day for pain as needed -Please check patients INR in 1 day on Thursday01/20/20. Rhabdomyolysis - CK 3500 on admission, since downtrending - Rehydrated with normal saline. - ?Secondary to body habitus and lack of movement - Patient notes that while in senior living they only have 1 hour where they are allowed out into the yard, the remainder of the time he spends sitting in his cell. - Can recheck CK in 1 month to ensure reduction of CK or if chronic for patient. Bipolar disorder - continue aripiprazole 2mg HS, trazodone 200 mg HS Total Time Total Time Spent Total Time Spent (In Minutes): <30 Discharge Plan Discharge Items [facility] Reason For Visit: pulmonary embolism and infarct Discharge Diagnosis: Pulmonary Embolism Condition on Discharge: Good Activity: Per Instructions section Non-emergency contact: Primary Care Provider Call non-emergency contact if: you have any medication questions, your symptoms worsen and your pain is not controlled Follow-up/Referrals: Caden JOAQUIN [Primary Care Provider] - (There is no follow appts for you at this time. ) Diet: Regular Addtl Attending Provider Instructions: 34 yo M inmate with hx bipolar disorder admitted for segmental and sub- segmental PE. Pulmonary embolism with pulmonary infarct - CTA: segmental and subsegmental PEs in LLL with developing pulmonary infarct - heparin drip for anticoagulation while bridging to Warfarin - BL LE dopplers negative for DVT - hypercoagulable panel of protein C,s, antithrombin, antiphospholipid, factor v leiden negative. - Given weight, unable to use DOAC for future anticoagulation. Transitioned to warfarin following nomogram. - INR 2.4 on day of discharge and heparin gtt discontinued. - morphine 4 mg IV Q3H PRN -- discontinued on discharge - ordered ECHO to evaluate for right heart strain and for baseline -- Grossly normal LV seize with EF 55-60% - Please continue to take the following: -Warfarin 7.5mg daily as initial starting. Will require titration based on INR goal 2-3. -Tylenol 1000mg up to three times a day for pain as needed -Naproxen 500mg up to twice a day for pain as needed -Please check patients INR in 1 day on Thursday01/20/20. Rhabdomyolysis - CK 3500 on admission, since downtrending - Rehydrated with normal saline. - ?Secondary to body habitus and lack of movement - Patient notes that while in senior living they only have 1 hour where they are allowed out into the yard, the remainder of the time he spends sitting in his cell. - Can recheck CK in 1 month to ensure reduction of CK or if chronic for patient. Bipolar disorder - continue aripiprazole 2mg HS, trazodone 200 mg HS Pending Studies at Discharge: No Stand-Alone Forms: My [facility] Skilled Items Patient informed of condition?: Yes Discharge Level of Care: Other Communicable Disease: No Discharge Prognosis: Stable Lines: None Urinary Catheter: No Medications and DC Order Prescriptions: New naproxen [Naprosyn] 500 mg tablet 500 mg PO BID PRN (Reason: pain) Qty: 1 RF: 0 acetaminophen [Tylenol Extra Strength] 500 mg tablet 1,000 mg PO TID PRN (Reason: pain) Qty: 1 RF: 0 warfarin 7.5 mg tablet 7.5 mg PO DAILY Qty: 1 RF: 0 Continued ammonium lactate 12 % Lotion 1 applic TOPICAL DAILY RF: 0 pantoprazole 20 mg Tablet,Delayed Release (Dr/Ec) 20 mg PO DAILY RF: 0 trazodone 100 mg Tablet 200 mg PO HS RF: 0 diphenhydramine HCl [Benadryl] 25 mg Capsule 50 mg PO HS RF: 0 aripiprazole [Abilify] 2 mg Tablet 2 mg PO HS RF: 0 Minerin Creme Cream 1 applic TOPICAL BID RF: 0 Invega Sustenna 156 mg/mL Syringe 156 mg IM UD RF: 0 Discharge Orders: Discharge Order (Routine); Ordered 01/19/20 Ordered By: Brando Ramirez Admission Data Admit Date/Time: 01/12/20 14:29 Attending Provider: Marin Blakely Admit Provider: Bakari Yang Primary Care Provider: Caden JOAQUIN Other Providers: Bakari Yang ; Kalie Blandon ; Yuri Perkins Other Interventions: Discharge Summary Assessment (RN) Last Done: 01/19/20 11:40 Supervising Physician Co-Signing Physician Notes I personally examined the patient and verified all rodriguez points of history and exam, discussed case, and agree with decision making with Dr Ramirez. feels about the same. updated on plans. asks good questions. mostly today just worried about pain control once he leaves vitals noted nad heent nc at mmm lungs cta b/l no r/r/w good effort skin no rashes no pallor or icterus PE - due to mass can't safely transition to DOAC and doubt could get efficacy from lovenox. (discussed in the future if weight is lost could consider a transition to a DOAC then) INR now therapeutic - stable for discharge. ongoing tylenol/nsaid for pain - anticipate ongoing improvement; would definitely dc NSAID in no more than another 7-10 days though to protect against PUD. mild rhabdo - mild, but only real inciting factors would be baseline body mass and sitting in cell for prolonged periods. seems asymptomatic. follow cli nically, would also recommend following CPK periodically to r/o underlying muscle/neuromuscular disorder otherwise as above Resident Activity Tracking Resident Involvement: Resident Care Provided Care Provided: Adult Hospital Medicine
[2020-01-19] MEDS: PANTOprazole 40 MG TAB PO SCH (08:27)
[2020-01-19 09:35] LABS: INR 2.4 (0.9-1.1)
--- NOTE | 2020-01-19 19:30 | Billing Data ---
Date of Service January 19, 2020 Coding Level of Care Code D/C Day Management <30 mins
== END 2020-01-19 13:34 | DRG 176 ==
LOC: ED 10:50 → 2W 14:29 → SUATTDRO 14:29 → 2W 16:21
DX: I26.94 Multiple subsegmental thrombotic pulmonary emboli without acute cor pulmonale; M54.42 Lumbago with sciatica, left side; Z79.899 Other long term (current) drug therapy; F31.9 Bipolar disorder, unspecified; Z20.828 Contact with and (suspected) exposure to other viral communicable diseases; M62.82 Rhabdomyolysis; R31.9 Hematuria, unspecified